=== PATIENT | male | born 1935 | race Caucasian/White ===

== ENCOUNTER 2019-02-28 09:32 | Inpatient (IN) | payer OTHER ==
--- NOTE | 2019-02-28 11:28 | RAD REPORT ---
EXAM DESCRIPTION: RAD - Chest Single View - 02/28/2019 10:59 am CLINICAL HISTORY: COPD, shortness of breath COMPARISON: None TECHNIQUE: AP portable chest image was obtained 1037 hours . FINDINGS: No focal lung parenchymal process seen. Mild prominence of the interstitial pattern favore d to be baseline the patient. No failure or volume overload. The Heart and vasculature are normal. No measurable pleural effusion and no pneumothorax. No acute bony abnormality seen. No acute aortic fin dings suspected. IMPRESSION: No acute cardiopulmonary process. Patient has mild interstitial lung disease favored to be chronic.
[2019-02-28 11:29] LABS: Absolute Lymphocytes (CBC) 0.7 K/uL (0.7-4.9); Absolute Monocytes 0.8 K/uL (0.1-1.3); Absolute Neutrophil 19.8 K/uL (1.8-8.0); Basophils % 0.1 % (0-1.3); Hematocrit 37.7 % (39.6-49.0); Lymphocytes % 3.1 % (15.3-44.8); MPV 9.1 fL (7.6-11.3); Monocytes % 3.5 % (3.3-12.3); RBC Red Blood Cell Count 4.13 M/uL (4.33-5.43)
[2019-02-28 11:33] LABS: Protime INR 1.26
[2019-02-28] MEDS ORDERED: LEVALBUTEROL 1.25 MG/3 ML NEB ONE (11:38)
[2019-02-28] MEDS ORDERED: NA CHLORIDE 0.9% 2,000 ML ONE (11:39)
[2019-02-28] MEDS ORDERED: CEFTRIAXONE/SWI 1gm 1 GM/10 ML SYR ONE (11:39)
[2019-02-28] MEDS ORDERED: FAMOTIDINE 20 MG/2 ML VIAL IV ONE (11:39)
[2019-02-28] MEDS ORDERED: predniSONE 20 MG TAB ONE (11:44)
--- NOTE | 2019-02-28 12:14 | EDPHYS ---
Physician Documentation [facility] Name: Juancho Avendaño Age: 83 yrs Sex: Male : 1935 Arrival Date: 02/28/2019 Time: 09:33 Bed 13 Private MD: ED Physician Akash Kemp HPI: 02/28 10:18 This 83 yrs old Male presents to ER via Wheelchair with complaints of kdr Shortness Of Breath, Trouble Walking, Decreased Appetite. 10:18 The patient has shortness of breath at rest, with light activity. Onset: The kdr symptoms/episode began/occurred gradually, 3 day(s) ago. Duration: The symptoms are continuous, and are steadily getting worse. The patient's shortness of breath is aggravated by exertion, light activity, is alleviated by rest, sitting up. Associated signs and symptoms: Pertinent positives: non-productive cough, nausea, vomiting, Pertinent negatives: chest pain, diaphoresis, dizziness, fever, loss of consciousness, numbness in extremities, visual changes. Severity of symptoms: At their worst the symptoms were moderate in the emergency department the symptoms are unchanged. It is unknown whether or not the patient has had similar symptoms in the past. The patient has not recently seen a physician. 10:18 [id number] states that the patient is normally very active but that for the last kdr three days he has been essentially bed ridden and weak. This morning, he was found on the floor. It is not known how long he had been there. He has no focal complaint other than minor tenderness to the right groin/pelvic rim. Historical: - Allergies: 09:50 No Known Allergies; hb - PMHx: 09:50 Hypertension; COPD; hb - Immunization history:: Adult Immunizations up to date. - Social history:: Smoking status: Patient uses tobacco products, smokes one pack cigarettes per day. - Ebola Screening: : No symptoms or risks identified at this time. ROS: 10:18 Constitutional: Negative for fever, chills, and weight loss, Eyes: Negative for injury, kdr pain, redness, and discharge, ENT: Negative for injury, pain, and discharge, Neck: Negative for injury, pain, and swelling, Cardiovascular: Negative for chest pain, palpitations, and edema, Abdomen/GI: Negative for abdominal pain, nausea, vomiting, diarrhea, and constipation, Back: Negative for injury and pain, : Negative for injury, bleeding, discharge, and swelling, MS/Extremity: Negative for injury and deformity, Skin: Negative for injury, rash, and discoloration, Psych: Negative for depression, anxiety, suicide ideation, homicidal ideation, and hallucinations, Allergy/Immunology: Negative for hives, rash, and allergies, Endocrine: Negative for neck swelling, polydipsia, polyuria, polyphagia, and marked weight changes, Hematologic/Lymphatic: Negative for swollen nodes, abnormal bleeding, and unusual bruising. 10:18 Respiratory: Positive for cough, dyspnea on exertion, shortness of breath, at rest. Negative for sputum production, acute changes. Exam: 10:28 Constitutional: This is a well developed, well nourished patient who is awake, alert, kdr and in no acute distress. Head/Face: Normocephalic, atraumatic. Eyes: Pupils equal round and reactive to light, extra-ocular motions intact. Lids and lashes normal. Conjunctiva and sclera are non-icteric and not injected. Cornea within normal limits. Periorbital areas with no swelling, redness, or edema. Neck: Trachea midline, no thyromegaly or masses palpated, and no cervical lymphadenopathy. Supple, full range of motion without nuchal rigidity, or vertebral point tenderness. No Meningismus. Chest/axilla: Normal chest wall appearance and motion. Nontender with no deformity. No lesions are appreciated. Cardiovascular: Regular rate and rhythm with a normal S1 and S2. No gallops, murmurs, or rubs. Normal PMI, no JVD. No pulse deficits. Abdomen/GI: Soft, non-tender, with normal bowel sounds. No distension or tympany. No guarding or rebound. No evidence of tenderness throughout. Back: No spinal tenderness. No costovertebral tenderness. Full range of motion. Skin: Warm, dry with normal turgor. Normal color with no rashes, no lesions, and no evidence of cellulitis. MS/ Extremity: Pulses equal, no cyanosis. Neurovascular intact. Full, normal range of motion. Neuro: Awake and alert, GCS 15, oriented to person, place, time, and situation. Cranial nerves II-XII grossly intact. Motor strength 5/5 in all extremities. Sensory grossly intact. Cerebellar exam normal. Normal gait. Psych: Awake, alert, with orientation to person, place and time. Behavior, mood, and affect are within normal limits. 10:28 Respiratory: mild respiratory distress is noted, Respirations: labored breathing, that is mild, Breath sounds: wheezing: inspiratory expiratory that is mild, is scattered, is heard diffusely. 12:06 ECG was reviewed by the Attending Physician. kdr Vital Signs: 09:49 BP 153 / 101; Pulse 92; Resp 28; Temp 98.4; Pulse Ox 83% on R/A; Weight 72.57 kg; bp 11:00 BP 115 / 78; Pulse 88; Resp 29; Pulse Ox 100% ; bp 12:32 BP 124 / 83; Pulse 96; Resp 23; Pulse Ox 100% ; bp 13:40 BP 100 / 65; Pulse 100; Resp 19; Pulse Ox 97% ; bp 14:36 BP 106 / 74; Pulse 91; Resp 23; Pulse Ox 96% ; bp MDM: 12:13 Patient medically screened. kdr 12:16 Data reviewed: vital signs, nurses notes, lab test result(s), EKG, radiologic studies. [facility] 02/28 10:17 Order name: Basic Metabolic Panel [facility] 02/28 10:17 Order name: Blood Culture Adult (2) kdr 02/28 10:17 Order name: CBC with Diff; Complete Time: 12:29 [facility] 02/28 10:17 Order name: Ckmb; Complete Time: 12:29 [facility] 02/28 10:17 Order name: CPK; Complete Time: 12:29 [facility] 02/28 10:17 Order name: Lactate; Complete Time: 12:04 [facility] 02/28 10:17 Order name: LFT's; Complete Time: 12:29 [facility] 02/28 10:17 Order name: Lipase; Complete Time: 12:29 [facility] 02/28 10:17 Order name: Procalcitonin; Complete Time: 12:29 [facility] 02/28 10:17 Order name: Protime (+inr); Complete Time: 12:29 [facility] 02/28 10:17 Order name: Ptt, Activated; Complete Time: 12:29 [facility] 02/28 10:17 Order name: Troponin (emerg Dept Use Only); Complete Time: 12:29 [facility] 02/28 10:17 Order name: Urine Microscopic Only; Complete Time: 14:00 [facility] 02/28 10:18 Order name: Basic Metabolic Panel; Complete Time: 12:29 EDMS 02/28 10:18 Order name: Blood Culture EDMS 02/28 12:19 Order name: Manual Differential; Complete Time: 12:29 EDMS 02/28 12:22 Order name: Basic Metabolic Panel EDMS 02/28 12:22 Order name: Basic Metabolic Panel EDMS 02/28 12:22 Order name: CBC with Automated Diff EDMS 02/28 12:22 Order name: CBC with Automated Diff EDMS 02/28 12:22 Order name: NT PRO-BNP EDMS 02/28 12:22 Order name: NT PRO-BNP EDMS 02/28 12:22 Order name: Troponin I EDMS 02/28 12:22 Order name: Troponin I EDMS 02/28 12:22 Order name: Troponin I EDMS 02/28 13:15 Order name: ABG Arterial Blood Gas; Complete Time: 14:00 EDMS 02/28 13:25 Order name: Blood Culture EDMS 02/28 13:32 Order name: Urine Dipstick--Ancillary (enter results) eb 02/28 13:35 Order name: Urine Dipstick-Ancillary; Complete Time: 14:00 EDMS 02/28 14:00 Order name: Flu kdr 02/28 10:17 Order name: Chest Single View XRAY; Complete Time: 11:37 kdr 02/28 10:17 Order name: Accucheck; Complete Time: 11:21 kdr 02/28 10:17 Order name: Cardiac monitoring; Complete Time: 11:21 kdr 02/28 10:17 Order name: EKG - Nurse/Tech; Complete Time: 11:42 kdr 02/28 10:17 Order name: IV Saline Lock - Large Bore; Complete Time: 11:20 kdr 02/28 10:17 Order name: Labs collected and sent; Complete Time: 11:20 kdr 02/28 10:17 Order name: O2 Per Protocol; Complete Time: 11:20 kdr 02/28 10:17 Order name: O2 Sat Monitoring; Complete Time: 11:21 kdr 02/28 10:17 Order name: Urine Dipstick-Ancillary (obtain specimen); Complete Time: 13:39 kdr 02/28 12:22 Order name: Regular EDMS 02/28 12:43 Order name: CT Head Brain wo Cont kdr 02/28 12:43 Order name: Pelvis XRAY kdr 02/28 12:43 Order name: Hip Right 2 View XRAY kdr 02/28 13:18 Order name: CT; Complete Time: 14:00 EDMS 02/28 14:32 Order name: Type and Screen EDMS 02/28 14:59 Order name: Lactate Sepsis 2 HR Follow-up EDMS EC:06 Rate is 88 beats/min. Rhythm is regular. QRS Star is Normal. VA interval is normal. QRS kdr interval is normal. Q waves are Present in leads II, III, aVF. Clinical impression: NSR w/ Non-specific ST/T Changes. Administered Medications: 10:30 Drug: Xopenex (3) 1.25 mg Route: Inhalation; bp 10:30 Drug: predniSONE 40 mg Route: PO; bp 14:54 Follow up: Response: No adverse reaction bp 11:30 Drug: NS 0.9% (30 ml/kg) 30 ml/kg Route: IV; Rate: bolus; Site: right antecubital; bp 14:54 Follow up: IV Status: Completed infusion; IV Intake: 2177ml bp 11:30 Drug: Pepcid 20 mg Route: IVP; Site: right antecubital; bp 14:53 Follow up: Response: No adverse reaction bp 11:30 Drug: Rocephin - (cefTRIAXone) 1 grams Route: IVPB; Infused Over: 30 mins; Site: right bp antecubital; 13:39 Follow up: IV Status: Completed infusion bp 13:00 Drug: vancoMYCIN 1 grams Route: IVPB; Infused Over: 2 hrs; Site: right antecubital; bp 14:53 Follow up: IV Status: Completed infusion; IV Intake: 250ml bp Disposition: 02/28/19 12:13 Hospitalization ordered by Joleen Conde for Inpatient Admission. Preliminary diagnosis is COPD Exacerbation, Pneumonia. - Bed requested for Telemetry/MedSurg (Inpatient). - Status is Inpatient Admission. bp - Condition is Serious. - Problem is new. - Symptoms have improved. UTI on Admission? No Signatures: Dispatcher [employer] EDWV Akash Kemp MD MD kdr Savannah Gastelum, RN RN Godfrey Luciano RN RN Johnna Jung Corrections: (The following items were deleted from the chart) 13:51 12:13 Hospitalization Ordered by Joleen Conde MD for Inpatient Admission. Preliminary eb diagnosis is COPD Exacerbation, Pneumonia. Bed requested for Telemetry/MedSurg (Inpatient). Status is Inpatient Admission. Condition is Serious. Problem is new. Symptoms have improved. UTI on Admission? No. kdr 15:08 13:51 02/28/2019 12:13 Hospitalization Ordered by Joleen Conde MD for Inpatient bp Admission. Preliminary diagnosis is COPD Exacerbation, Pneumonia. Bed requested for Telemetry/MedSurg (Inpatient). Status is Inpatient Admission. Condition is Serious. Problem is new. Symptoms have improved. UTI on Admission? No. eb
--- NOTE | 2019-02-28 12:14 | ER ---
Nurse's Notes [facility] Name: Juancho Avendaño Age: 83 yrs Sex: Male : 1935 Arrival Date: 02/28/2019 Time: 09:33 Bed 13 Private MD: Diagnosis: COPD Exacerbation, Pneumonia Presentation: 02/28 09:48 Presenting complaint: Patient states: Worsening SOB and generalized weakness x 3 days. hb Transition of care: patient was not received from another setting of care. Onset of symptoms was February 25, 2019. Risk Assessment: Do you want to hurt yourself or someone else? Patient reports no desire to harm self or others. Care prior to arrival: None. 09:48 Method Of Arrival: Wheelchair hb 09:48 Acuity: GRISEL 2 hb 10:00 Initial Sepsis Screen: Does the patient meet any 2 criteria? RR > 20 per min. No. bp Patient's initial sepsis screen is negative. Does the patient have a suspected source of infection? Yes: Productive cough/pneumonia. Triage Assessment: 10:00 General: Appears in no apparent distress. comfortable, Behavior is calm, cooperative, bp appropriate for age. Respiratory: Reports shortness of breath cough that is Onset: The symptoms/episode began/occurred at an unknown time. the patient has moderate shortness of breath. Historical: - Allergies: 09:50 No Known Allergies; hb - PMHx: 09:50 Hypertension; COPD; hb - Immunization history:: Adult Immunizations up to date. - Social history:: Smoking status: Patient uses tobacco products, smokes one pack cigarettes per day. - Ebola Screening: : No symptoms or risks identified at this time. Screenin:51 Abuse screen: Denies threats or abuse. Denies injuries from another. Nutritional bp screening: No deficits noted. Tuberculosis screening: No symptoms or risk factors identified. Fall Risk None identified. Assessment: 09:49 General: Appears distressed, comfortable, Behavior is cooperative, anxious. Pain: bp Complains of pain in GENERALIZED. Neuro: Level of Consciousness is awake, obeys commands, Oriented to person, place. Cardiovascular: Rhythm is sinus rhythm. Respiratory: Airway is patent Respiratory effort is even, labored, Respiratory pattern is symmetrical, Breath sounds with wheezes bilaterally. GI: No signs and/or symptoms were reported involving the gastrointestinal system. : Parent/caregiver report the patient having incontinence since 2 DAYS AGO. EENT: No deficits noted. Derm: No deficits noted. Musculoskeletal: GENERALIZED WEAKNESS. 11:00 Reassessment: IVF INFUSING, NO APPARENT DISTRESS. bp 12:33 Reassessment: ADMIT IN PROCESS, VS STABLE ON MONITOR. bp Vital Signs: 09:49 BP 153 / 101; Pulse 92; Resp 28; Temp 98.4; Pulse Ox 83% on R/A; Weight 72.57 kg; bp 11:00 BP 115 / 78; Pulse 88; Resp 29; Pulse Ox 100% ; bp 12:32 BP 124 / 83; Pulse 96; Resp 23; Pulse Ox 100% ; bp 13:40 BP 100 / 65; Pulse 100; Resp 19; Pulse Ox 97% ; bp 14:36 BP 106 / 74; Pulse 91; Resp 23; Pulse Ox 96% ; bp ED Course: 09:33 Patient arrived in ED. as 09:34 Akash Kemp MD is Attending Physician. kdr 09:49 Triage completed. hb 09:49 Godfrey Kennedy, RN is Primary Nurse. bp 09:49 Arm band placed on. hb 09:51 Patient has correct armband on for positive identification. Placed in gown. Bed in low bp position. Call light in reach. Side rails up X2. Adult w/ patient. 09:51 Oxygen administration via nasal cannula \T\ 2L/min. bp 09:52 surveillance monitor on. Pulse ox on. NIBP on. bp 10:59 Chest Single View XRAY In Process Unspecified. EDMS 11:10 Inserted saline lock: 20 gauge in right antecubital area, using aseptic technique. hb Blood collected. 11:52 EKG done, by sterilization tech. reviewed by Akash Kemp MD. sm3 12:11 Joleen Conde MD is Hospitalizing Provider. kdr 14:52 No provider procedures requiring assistance completed. Patient admitted, IV remains in bp place. Administered Medications: 10:30 Drug: Xopenex (3) 1.25 mg Route: Inhalation; bp 10:30 Drug: predniSONE 40 mg Route: PO; bp 14:54 Follow up: Response: No adverse reaction bp 11:30 Drug: NS 0.9% (30 ml/kg) 30 ml/kg Route: IV; Rate: bolus; Site: right antecubital; bp 14:54 Follow up: IV Status: Completed infusion; IV Intake: 2177ml bp 11:30 Drug: Pepcid 20 mg Route: IVP; Site: right antecubital; bp 14:53 Follow up: Response: No adverse reaction bp 11:30 Drug: Rocephin - (cefTRIAXone) 1 grams Route: IVPB; Infused Over: 30 mins; Site: right bp antecubital; 13:39 Follow up: IV Status: Completed infusion bp 13:00 Drug: vancoMYCIN 1 grams Route: IVPB; Infused Over: 2 hrs; Site: right antecubital; bp 14:53 Follow up: IV Status: Completed infusion; IV Intake: 250ml bp Intake: 14:53 IV: 250ml; Total: 250ml. bp 14:54 IV: 2177ml; Total: 2427ml. bp Outcome: 12:13 Decision to Hospitalize by Provider. kdr 14:51 Admitted to Med/surg accompanied by tech, family with patient, via stretcher, room 203, bp with chart, Report called to ANN [place] 14:51 Condition: stable 14:51 Instructed on the need for admit. 15:08 Patient left the ED. bp Signatures: Dispatcher [employer] EDMS Akash Kemp MD MD kdr Martinez, Amelia as Savannah Gastelum RN RN Godfrey Luciano RN RN bp Emily Bowling 3 Corrections: (The following items were deleted from the chart) 11:22 09:49 BP 153 / 101; Pulse 92bpm; Resp 28bpm; Pulse Ox 83% RA; Temp 98.4F; hb bp
[2019-02-28 12:16] LABS: Albumin 3.1 g/dL (3.4-5.0); Bilirubin Direct 0.2 mg/dL (0-0.2); Bilirubin Total 0.5 mg/dL (0.2-1.0); CKMB Creatine Kinase MB 13.8 ng/mL (0.3-3.6); Potassium 4.3 mmol/L (3.5-5.1); Protein, Total 7.3 g/dL (6.4-8.2); Troponin (Emerg Dept Use Only) 5.92 ng/mL (0.0-0.045)
[2019-02-28] MEDS ORDERED: IPRATROPIUM BROM 0.5MG/2.5ML NEB PRN (12:19)
[2019-02-28] MEDS ORDERED: ONDANSETRON 4 MG/2 ML VIAL IV PRN (12:19)
[2019-02-28] MEDS ORDERED: ALBUTEROL 2.5 MG/3 ML NEB SOL NEB PRN (12:19)
[2019-02-28] MEDS ORDERED: NA CHLORIDE 0.9% 500 ML IV ONE (12:22)
[2019-02-28 12:23] LABS: Blood Morphology Comment NOT SEEN (NOT SEEN); Platelet Estimate ADEQ
[2019-02-28] MEDS ORDERED: VANCOMYCIN/NS 1 gm 1 GM/250 ML BAG IV ONE ×2 (12:45→17:00)
[2019-02-28 13:15] LABS: Arterial Blood Carboxyhemoglob 1.1 % (0-1.5); Blood Gas Oxyhemoglobin 93.3 % (94-97); Blood O2 Saturation 95.3 % (92-98.5)
--- NOTE | 2019-02-28 13:17 | RAD REPORT ---
EXAM DESCRIPTION: CT - Head Brain Wo Cont - 02/28/2019 1:09 pm CLINICAL HISTORY: Head injury status post fall COMPARISON: None. TECHNIQUE: Computed axial tomography of the head was obtained. IV contrast was not requested. All CT scans are performed using dose optimization technique as appropriate and may include automated exposure control or mA/KV adjustment according to patient size. FINDINGS: 6 centimeter area of cystic encephalomalacia is present within the right cerebrum either s econdary to an old infarct or old bleed. No acute intracranial bleed is seen . Hydrocephalus is not present. No extra-axial fluid collection is noted. Fluid within the sinuses/ mastoids is not seen. IMPRESSION: No acute intracranial abnormality is seen. If patient's symptoms persist MRI of the bra in would be recommended.
[2019-02-28 13:35] LABS: Urine Blood 2+ (NEG); Urine Glucose NEGATIVE (NEG); Urine Protein 3+ (NEG); Urine Specific Gravity 1.015 (1.005-1.030); Urine pH 8.5 (5.0-7.0)
[2019-02-28 13:41] LABS: Urine Bacteria >50 /HPF (NONE SEEN); Urine Culture Reflex Order REFLEXED
--- NOTE | 2019-02-28 15:40 | RAD REPORT ---
EXAM DESCRIPTION: RAD - Hip Right 2 View - 02/28/2019 2:53 pm CLINICAL HISTORY: Fall, hip pain COMPARISON: None. FINDINGS: AP and cross-table lateral views obtained. Bipolar prosthesis is in place. No dislocation of the femoral or acetabular components. Osteopenic c hanges are seen in the proximal intertrochanteric region of the femur. No fracture or acute finding. No significant soft tissue finding identifiable. 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 No acute bone or joint finding. No suspicious implant finding.
--- NOTE | 2019-02-28 15:45 | RAD REPORT ---
EXAM DESCRIPTION: RAD - Pelvis - 02/28/2019 2:54 pm CLINICAL HISTORY: Fall, weakness, hip and pelvic pain COMPARISON: None. TECHNIQUE: AP imaging of the pelvis was obtained. FINDINGS: Lower lumbar degenerative changes are present only partially imaged. No fracture or acute finding of the bony pelvis. Right bipolar prosthesis in place with no dislocation. No acute finding o f either proximal femur or hip joint. No suspicious soft tissue finding. IMPRESSION: No fracture or acute finding noted.
[2019-02-28 16:15] LABS: Albumin 2.7 g/dL (3.4-5.0); Bilirubin Total 0.4 mg/dL (0.2-1.0); Potassium 3.6 mmol/L (3.5-5.1); Protein, Total 6.1 g/dL (6.4-8.2)
[2019-02-28] MEDS: ENOXAPARIN 30 MG/0.3 ML SQ SCH (16:19)
[2019-02-28] MEDS: ACETAMINOPHEN 500 MG TAB PO PRN (16:19)
[2019-02-28] MEDS ORDERED: METHYLPREDNISOLONE 40 MG INJ IV SCH (17:00)
--- NOTE | 2019-03-01 02:19 | HP ---
Date of Admission: 02/28/2019 History Of Present Illness: An 83-year-old male who started feeling tired for the past 2 days and he felt febrile and had chills and he gradually got worse and today, he went to the bathroom and he was trying to sit on the commode when he actually slipped. He caught himself. He did not have a trauma tic fall, but he sat on the floor and stayed on the floor for about 2-3 hours because he could not ge t himself up from there until his family found him and brought into the emergency room. The patient was found to be having sepsis and indicated up until now with workup is from urine tract infection. The patient himself right now is alert and oriented. He has no complaints and no urinary complaints. He has only complaint he was feeling fatigued and tired. Review of Systems: Cardiovascular: No complaints. Skeletomuscular: No complaint. No pains. Genitourinary: The patient wet himself 2-3 times yesterday. Gastrointestinal: No complaint. Cardiovascular: No complaint. Neurological: No complaint. Past Medical History: 1.COPD. 2.Chronic kidney disease with hypertension. 3.Coronary artery disease. 4.Hyperlipidemia. 5.Osteoarthritis, multiple joints. 6.Bilateral decreased hearing. 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 Social History: The patient still smokes till now. No alcohol or IV drug abuse history. Family History: Noncontributing. Medications: Include lisinopril 20 mg p.o. daily, furosemide 40 mg p.o. daily, Plavix 75 mg p.o. eduin ly, spironolactone 25 mg p.o. daily, simvastatin 20 mg p.o. daily, amlodipine 2.5 mg p.o. daily. Allergies: NO KNOWN DRUG ALLERGIES. Physical Examination: Vital Signs: Blood pressure 150/100, pulse 92, temperature 98.4. Heart: Regular rate and rhythm. Chest: Clear to auscultation. Abdomen: Soft, nontender, nondistended. Bowel sounds are normoactive. The patient had no tendernes s on both of CVA areas. Neurological examination: Alert, oriented, nonfocal. Grossly intact. Extremities: No edema. No cyanosis. Peripheral pulses are felt. Imaging: The patient's chest x-ray, no acute pathology. Head CT, no acute pathology. Hip and pelvi c x-ray reported to me by ER physician, no acute pathology. Laboratory Data: CBC: White cell count of 21.2, hemoglobin 12.7, hematocrit 37.7, platelets 154, ab solute neutrophils 19.8, which are high. PT, INR, and PTT noted. ABGs on room showed the pH of 7.43 , pCO2 27.8, PO2 78.4, saturation 95.3. Chemistry, pending, however, his lactic acid was 2.7, which is high. Urinalysis; urine blood 2+, esterase 1+, white BC more than 50. Assessment/plan: 1.Sepsis from urine tract infection. The patient is being admitted. We will put him on IV Rocephin and we will monitor his electrolytes and his CBC. We will continue his home medicines for his chron ic medical illnesses, and microbiology cultures are drawn. We will guide antibiotics after that pend ing culture results. 2.COPD. We will continue the patient on his breathing treatments. 3.The patient has also been put on vancomycin. We will ask pharmacy to guide dosing guided by his r enal function. Look orders for details. BRANDI/KATELYN Voice ID: [id number]
[2019-03-01 06:47] LABS: Potassium 3.9 mmol/L (3.5-5.1)
[2019-03-01 06:58] LABS: Absolute Lymphocytes (CBC) 0.6 K/uL (0.7-4.9); Absolute Monocytes 0.7 K/uL (0.1-1.3); Absolute Neutrophil 15.4 K/uL (1.8-8.0); Basophils % 0.2 % (0-1.3); Hematocrit 34.4 % (39.6-49.0); Lymphocytes % 3.4 % (15.3-44.8); MPV 10.2 fL (7.6-11.3); Monocytes % 4.2 % (3.3-12.3); RBC Red Blood Cell Count 3.78 M/uL (4.33-5.43)
[2019-03-01] MEDS: IPRATROPIUM BROM 0.5MG/2.5ML NEB PRN (08:00)
[2019-03-01] MEDS: ALBUTEROL 2.5 MG/3 ML NEB SOL NEB PRN (08:00)
[2019-03-01] MEDS: CEFTRIAXONE/SWI 1gm 1 GM/10 ML SYR IVP SCH (09:00)
--- NOTE | 2019-03-01 12:37 | CON ---
Reason For Consultation: Abnormal troponins. History Of Present Illness: Mr. Ramesh was found fallen on the floor, unable to stand up. He had co mplained of weakness a few days before and since being in the hospital, he has been found to have sep sis, urinary tract infection. He has gram-negative rods growing from the urine. He has gram-positiv e cocci growing in the blood. It is not clear to me if that is a skin contaminant or actually has a strep infection. Identifying organisms have not been done as of yet. He is on antibiotics and seems to be getting better. He is not on vancomycin and ceftriaxone. He has never had myocardial infarct ion. He has had a stroke before. As an outpatient, he takes spironolactone, simvastatin, lisinopril , amlodipine, Lasix and Plavix. Physical Examination: General: He appears to be much older than his stated age, very poor oral hygiene, amount of missing teeth, looks like very severe gum disease, very hard of hearing. He is more than slightly confused. Lungs: Clear. Heart: Regular rate and rhythm. No significant murmur. Abdomen: Soft. Extremities: No edema. Distal pulses diminished. The patient is a regular tobacco user. Laboratory Data: His chest x-ray shows chronic interstitial lung disease. His electrocardiogram jorge ws sinus rhythm without infarction, injury, or ischemia. Troponins are very elevated. Also, white c ount is very elevated. Troponins are in the 7.58-8.69 range. They were 5.92 when he first arrived i the [facility]. Also, creatine kinase and CK-MB were both high. The percent of total CK that was CK -MB 2 was low consistent with musculoskeletal disease. Procalcitonin levels are more than 20. Impression: The patient is probably not having an acute coronary syndrome. I think he has severe se pticemia. He may have 2 different sources. It is possible he has an infected valve, but he definite ly has urinary tract infection, probably nephritis with gram-negative septicemia. I do not think doi ng a cardiac cath is the right thing to do now. Giving him antibiotics, doing an echo is probably wo rthwhile. I will order an echocardiogram for Sunday. JOANNA/KATELYN Voice ID: [id number] Report ID: [id number]
--- NOTE | 2019-03-01 13:13 | PN ---
Subjective: The patient is doing okay. Has no new complaints. Objective: Vital Signs: Blood pressure 145/70, pulse 80, temperature 97.3. Heart: Regular rate and rhythm. Chest: Clear to auscultation. Abdomen: Soft, benign. Bowel sounds are active. Extremities: No edema. No cyanosis. Peripheral pulses are felt. Neurological: Alert, oriented. He knew my name and that I am his physician, and that he is in the h ospital. Nonfocal. Grossly intact. Laboratory Data: BUN 61, creatinine 2.25. This has slightly improved. Blood sugar fingersticks 174 to 138. Troponin 8.69. CPK dropped from 8012-2799. CBC, white cell count 16.7 dropped from 21.2, hemoglobin 11.4, hematocrit 34.4, platelets 157. Influenza screening negative. Urinalysis more than 100,000 colony-forming units per mL. Has mixed valencia and 4+ gram-negative rods. Blood cultures, gr am-positive cocci in pairs and chains. Sensitivity is pending. Assessment/plan: 1.Sepsis from urinary tract infection. The patient responding to vancomycin and Rocephin. Pending culture results completed and sensitivity. 2.Rhabdomyolysis secondary to prolonged recumbency on the floor for few hours before he came to the hospital. We will put the patient on gentle hydration to improve also kidney functions. I think the patient has acute renal failure from also volume depletion. 3.Increased troponin. The patient with history of coronary artery disease. Cardiology is being con sulted. The patient is hemodynamically stable. Pending Cardiology recommendation for elevated blood sugar fingersticks. We will go ahead, I have been checking hemoglobin A1c, and we will act accordingly. Rest of medical problems, stable. Look orders for details. MFS/MODL Voice ID: [id number] Report ID: [id number]
[2019-03-01] MEDS: NA CHLORIDE 0.9% 1,000 ML IV SCH (13:44)
[2019-03-01] MEDS: ENOXAPARIN 30 MG/0.3 ML SQ SCH (16:55)
[2019-03-01] MEDS: ATORVASTATIN 10 MG TAB PO SCH (22:00)
[2019-03-02] MEDS ORDERED: VANCOMYCIN 1.5 GM in NA CHLORIDE 0.9% 500 ML IVPB SCH (05:00)
[2019-03-02 05:11] LABS: Absolute Lymphocytes (CBC) 0.7 K/uL (0.7-4.9); Absolute Monocytes 0.8 K/uL (0.1-1.3); Absolute Neutrophil 8.5 K/uL (1.8-8.0); Basophils % 0.1 % (0-1.3); Eosinophils % 0.2 % (0-4.4); Hematocrit 31.2 % (39.6-49.0); Lymphocytes % 6.5 % (15.3-44.8); MPV 9.7 fL (7.6-11.3); Monocytes % 8.3 % (3.3-12.3); RBC Red Blood Cell Count 3.42 M/uL (4.33-5.43)
[2019-03-02 05:41] LABS: Potassium 3.8 mmol/L (3.5-5.1)
[2019-03-02] MEDS: IPRATROPIUM BROM 0.5MG/2.5ML NEB PRN ×2 (06:15→19:55)
[2019-03-02] MEDS: ALBUTEROL 2.5 MG/3 ML NEB SOL NEB PRN ×2 (06:15→19:55)
[2019-03-02] MEDS: ACETAMINOPHEN 500 MG TAB PO PRN (06:32)
[2019-03-02] MEDS: CLOPIDOGREL 75 MG TABLET PO SCH (08:12)
[2019-03-02] MEDS: AMLODIPINE 2.5 MG TAB PO SCH (08:12)
[2019-03-02] MEDS: LISINOPRIL 20 MG TAB PO SCH (08:13)
[2019-03-02] MEDS: CEFTRIAXONE/SWI 1gm 1 GM/10 ML SYR IVP SCH (08:13)
[2019-03-02] MEDS: NA CHLORIDE 0.9% 1,000 ML IV SCH ×2 (09:00→13:41)
[2019-03-02] MEDS: ENOXAPARIN 30 MG/0.3 ML SQ SCH (17:34)
[2019-03-02] MEDS: ATORVASTATIN 10 MG TAB PO SCH (20:25)
[2019-03-03] MEDS: ALBUTEROL 2.5 MG/3 ML NEB SOL NEB PRN (01:31)
[2019-03-03] MEDS: IPRATROPIUM BROM 0.5MG/2.5ML NEB PRN (01:31)
[2019-03-03] MEDS: NA CHLORIDE 0.9% 1,000 ML IV SCH (04:21)
[2019-03-03] MEDS ORDERED: NA CHLORIDE 0.9% 500 ML ONE (04:45)
[2019-03-03] MEDS ORDERED: VANCOMYCIN 1 GM/VIAL ONE (04:45)
[2019-03-03] MEDS ORDERED: VANCOMYCIN 500 MG/VIAL ONE (04:45)
[2019-03-03] MEDS: VANCOMYCIN 1.5 GM in NA CHLORIDE 0.9% 500 ML IVPB SCH ×2 (04:49→04:55)
[2019-03-03 06:01] LABS: Absolute Lymphocytes (CBC) 0.7 K/uL (0.7-4.9); Absolute Neutrophil 6.2 K/uL (1.8-8.0); Basophils % 0.2 % (0-1.3); Eosinophils % 0.3 % (0-4.4); Hematocrit 33.3 % (39.6-49.0); Lymphocytes % 9.1 % (15.3-44.8); MPV 9.5 fL (7.6-11.3); Monocytes % 12.5 % (3.3-12.3); RBC Red Blood Cell Count 3.66 M/uL (4.33-5.43)
[2019-03-03 06:35] LABS: Potassium 3.7 mmol/L (3.5-5.1)
[2019-03-03] MEDS: CEFTRIAXONE/SWI 1gm 1 GM/10 ML SYR IVP SCH (08:42)
[2019-03-03] MEDS: LISINOPRIL 20 MG TAB PO SCH (08:42)
[2019-03-03] MEDS: CLOPIDOGREL 75 MG TABLET PO SCH (08:42)
[2019-03-03] MEDS: AMLODIPINE 2.5 MG TAB PO SCH (08:42)
[2019-03-03] MEDS: CIPROFLOXACIN HCL 250 MG TAB PO SCH ×2 (09:14→20:57)
--- NOTE | 2019-03-03 11:58 | ECHO ---
HEIGHT: 5 ft 9 in WEIGHT: 185 lb 0 oz DATE OF STUDY: 03/03/[address]: 2-DIMENSIONAL: YES M.MODE: YES DOPPLER: YES COLOR FLOW: YES TDS: NO PORTABLE: NO DEFINITY: NO BUBBLE STUDY: NO DIAGNOSIS: ABNORMAL TROPONIN CARDIAC HISTORY: CATHERIZATION: NO SURGERY: NO PROSTHETIC VALVE: NO PACEMAKER: NO MEASUREMENTS (cm) DIASTOLIC (NORMALS) SYSTOLIC (NORMALS) IVSd 1.2 (0.6-1.2) LA Diam 3.4 (1.9-4.0) LVEF 55-57% LVIDd 5.3 (3.5-5.7) LVIDs 4.3 (2.0-3.5) %FS 19% LVPWd 1.2 (0.6-1.2) Ao Diam 2.6 (2.0-3.7) 2 DIMENSIONAL ASSESSMENT: RIGHT ATRIUM: NORMAL LEFT ATRIUM: NORMAL RIGHT VENTRICLE: NORMAL LEFT VENTRICLE: NORMAL TRICUSPID VALVE: NORMAL MITRAL VALVE: NORMAL PULMONIC VALVE: NORMAL AORTIC VALVE: SCLEROSIS, THREE LEAFLETS PERICARDIAL EFFUSION: NONE AORTIC ROOT: NORMAL LEFT VENTRICULAR WALL MOTION: MILD APICAL HYPOKINESIS. DOPPLER/COLOR FLOW: MILD MITRAL REGURGITATION AND MILD AORTIC REGURGITATION. COMMENTS: NORMAL LEFT VENTRICULAR EJECTION FRACTION WITH APICAL HYPOKINESIS. AORTIC SCLEROSIS WITH NO AORTIC STENOSIS. MILD AORTIC REGURGITATION AND MITRAL REGURGITATION. TECHNOLOGIST: ASIM MACHADO
[2019-03-03] MEDS: ACETAMINOPHEN 500 MG TAB PO PRN (16:09)
[2019-03-03] MEDS: ENOXAPARIN 30 MG/0.3 ML SQ SCH (16:10)
--- NOTE | 2019-03-03 20:45 | PN ---
Subjective: The patient is doing well. Still having some difficulty in ambulating on his own. Objective: Vital Signs: Blood pressure 135/65, pulse 60, temperature 98. Heart: Regular rate and rhythm. Chest: Clear to auscultation. Abdomen: Soft, benign. Neurologic: Alert, oriented x4. Grossly intact. Extremities: No edema. No cyanosis. Peripheral pulses are felt. Laboratory Data: The patient's cardiac echo showed left ventricular ejection fraction at 55%-57% and the patient's chemistry showed improved renal function. CBC noted. Blood grew Providencia rettgeri bacteria, sensitivities noted. Assessment And Plan: 1.Acute renal failure, improving. Sepsis controlled. We are going to change the patient guarded by his Pseudomonas aeruginosa in urine and Providencia in the blood to ciprofloxacin 250 mg b.i.d. acco unting also for the patient's renal failure which is improving. 2.We will ask for the patient to be in a correction facility for PT and OT for ambulation. 3.We will continue the rest of his home medications. 4.Appreciate Cardiology input. Look orders for details. MFS/MODL Voice ID: [id number] Report ID: [id number]
[2019-03-03] MEDS: ATORVASTATIN 10 MG TAB PO SCH (20:57)
[2019-03-04] MEDS: NA CHLORIDE 0.9% 1,000 ML IV SCH (01:16)
[2019-03-04] MEDS: CLOPIDOGREL 75 MG TABLET PO SCH (09:14)
[2019-03-04] MEDS: AMLODIPINE 2.5 MG TAB PO SCH (09:14)
[2019-03-04] MEDS: CIPROFLOXACIN HCL 250 MG TAB PO SCH ×2 (09:14→21:29)
[2019-03-04] MEDS: LISINOPRIL 20 MG TAB PO SCH (09:14)
--- NOTE | 2019-03-04 11:25 | EKG ---
Test Date: 2019-02-28 Test Time: 11:47:42 Industrial Machine System Technician: NICHOLAS MEASUREMENT RESULTS: Intervals: Rate: 88 [place]: 180 QRSD: 100 QT: 346 QTc: 418 [place]: P: 37 [place]: 180 QRS: 69 T: 53 INTERPRETIVE STATEMENTS: Normal sinus rhythm Nonspecific T wave abnormality Abnormal ECG No previous ECG available for comparison Electronically Signed On 02-28-19 12:49:21 CDT by Placido Meyer
--- NOTE | 2019-03-04 11:26 | EKG ---
Test Date: 2019-02-28 Test Time: 17:16:12 Certified Social Workers In Health Care: [place] MEASUREMENT RESULTS: Intervals: Rate: 71 [place]: 186 QRSD: 114 QT: 424 QTc: 460 [place]: P: 51 [place]: 186 QRS: 63 T: 59 INTERPRETIVE STATEMENTS: Normal sinus rhythm Cannot rule out Anterior infarct, age undetermined Abnormal ECG Compared to ECG 02/28/2019 11:47:42 Myocardial infarct finding now present T-wave abnormality no longer present Electronically Signed On 02-28-19 18:20:56 CDT by Placido Meyer
--- NOTE | 2019-03-04 11:26 | EKG ---
Test Date: 2019-02-28 Test Time: 17:29:16 Degreaser: ALFREDO MEASUREMENT RESULTS: Intervals: Rate: 70 [place]: 180 QRSD: 116 QT: 436 QTc: 470 [place]: P: 53 [place]: 180 QRS: 66 T: 25 INTERPRETIVE STATEMENTS: Normal sinus rhythm Cannot rule out Anterior infarct, age undetermined Abnormal ECG Compared to ECG 02/28/2019 11:47:42 Myocardial infarct finding now present T-wave abnormality no longer present Electronically Signed On 02-28-19 18:20:47 CDT by Placido Meyer
[2019-03-04] MEDS: ENOXAPARIN 30 MG/0.3 ML SQ SCH (16:54)
[2019-03-04] MEDS: ALBUTEROL 2.5 MG/3 ML NEB SOL NEB PRN (17:17)
[2019-03-04] MEDS: IPRATROPIUM BROM 0.5MG/2.5ML NEB PRN (17:17)
[2019-03-04] MEDS: ATORVASTATIN 10 MG TAB PO SCH (21:29)
[2019-03-05] MEDS: AMLODIPINE 2.5 MG TAB PO SCH (08:55)
[2019-03-05] MEDS: CIPROFLOXACIN HCL 250 MG TAB PO SCH (08:55)
[2019-03-05] MEDS: LISINOPRIL 20 MG TAB PO SCH (08:55)
[2019-03-05] MEDS: CLOPIDOGREL 75 MG TABLET PO SCH (08:56)
== END 2019-03-05 15:45 | DRG 871 ==
LOC: ER 09:32 → ERHOLD 12:17 → 2ND 14:53
PROVIDERS: ADMIT Internal Medicine; ATTEND Internal Medicine
DX: A41.59 Other Gram-negative sepsis (principal); J18.9 Pneumonia, unspecified organism; J44.0 Chronic obstructive pulmonary disease with (acute) lower respiratory infection; I69.354 Hemiplegia and hemiparesis following cerebral infarction affecting left non-dominant side; N39.0 Urinary tract infection, site not specified; M62.82 Rhabdomyolysis; N17.9 Acute kidney failure, unspecified; J44.1 Chronic obstructive pulmonary disease with (acute) exacerbation; R65.20 Severe sepsis without septic shock; F17.210 Nicotine dependence, cigarettes, uncomplicated; I25.10 Atherosclerotic heart disease of native coronary artery without angina pectoris; I10 Essential (primary) hypertension; E78.5 Hyperlipidemia, unspecified; M19.90 Unspecified osteoarthritis, unspecified site; H91.93 Unspecified hearing loss, bilateral; R79.89 Other specified abnormal findings of blood chemistry; B96.5 Pseudomonas (aeruginosa) (mallei) (pseudomallei) as the cause of diseases classified elsewhere
CPT/HCPCS: 36415; 70450; 71045; 72170; 80048; 80053; 80076; 80202; 81003; 81015; 82150; 82550; 82553; 82805; 82962; 83036; 83605; 83690; 83880; 84145; 84484; 85025; 85610; 85730; 86140; 86850; 86900; 86901; 87040; 87070; 87077; 87086; 87088; 87186; 87205; 87804; 93005; 93306; 94640; 94760; 96365; 96366; 96367; 96368; 96375; 97110; 97116; 97162; 97530; 99285; J0696; J1650; J3370; J7030; J7512

== ENCOUNTER 2020-04-13 10:33 | Inpatient (IN) | payer OTHER ==
--- OUTSIDE RECORDS SUMMARY | 2020-04-13 11:34 | XMS REPORT ---
:1935 Author Organization [facility] Address [facility]ly 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 Social History Smoking Status Start Date Stop Date Source Heavy Tobacco Smoker [facility] Medications Ordered Filled Start Stop Current Ordering Indication Dosage Frequency Signature Comments Components Source Medication Medication Date Date Medication? Clinician (SIG) Name Name amlodipine amlodipine No 1 Q1D amlodipine [facility] 2.5 mg 2.5 mg 2.5 mg Family tablet Take tablet Take tablet Practic 1 tablet 1 tablet Take 1 e every day every day tablet by oral by oral every day route for route for by oral 90 days. 90 days. route for 90 days. clopidogrel clopidogrel No 1 Q1D clopidogre [facility] 75 mg 75 mg l 75 mg Family tablet Take tablet Take tablet Practic 1 tablet 1 tablet Take 1 e every day every day tablet by oral by oral every day route for route for by oral 90 days. 90 days. route for 90 days. furosemide furosemide No 1 Q1D furosemide [facility] 40 mg 40 mg 40 mg Family tablet Take tablet Take tablet Practic 1 tablet 1 tablet Take 1 e every day every day tablet by oral by oral every day route for route for by oral 30 days. 30 days. route for 30 days. lisinopril lisinopril No 1 Q1D lisinopril [facility] 20 mg 20 mg 20 mg Family tablet Take tablet Take tablet Practic 1 tablet 1 tablet Take 1 e every day every day tablet by oral by oral every day route. route. by oral route. ProAir HFA ProAir HFA No 2puff(s Q4H ProAir HFA [facility] ) 90 Family mcg/actuati mcg/actuati mcg/actuat Pract[facility] on aerosol on aerosol ion e inhaler inhaler aerosol Inhale 2 Inhale 2 inhaler puffs every puffs every Inhale 2 4 hours by 4 hours by puffs inhalation inhalation every 4 route as route as hours by needed. needed. inhalation route as needed. simvastatin [facility] mg n 20 mg Family tablet Take tablet Take tablet Practic 1 tablet 1 tablet Take 1 e every day every day tablet by oral by oral every day route for route for by oral 90 days. 90 days. route for 90 days. spironolact spironolact No 1 Q1D spironolac [facility] one 25 mg one 25 mg tone 25 mg Family tablet Take tablet Take tablet Practic 1 tablet 1 tablet Take 1 e every day every day tablet by oral by oral every day route for route for by oral 90 days. 90 days. route for 90 days. Symbicort Symbicort No 2puff(s BID Symbicort [facility] 160 mcg-4.5 160 mcg-4.5 ) 160 F amily mcg/actuati mcg/actuati mcg-4.5 Practic on HFA on HFA mcg/actuat e aerosol aerosol ion HFA inhaler inhaler aerosol Inhale 2 Inhale 2 inhaler puffs twice puffs twice Inhale 2 a day by a day by puffs inhalation inhalation twice a route as route as day by directed. directed. inhalation route as directed. tamsulosin tamsulosin No 1capsul Q1D tamsulosin [facility] 0.4 mg 0.4 mg e(s) 0.4 mg Family capsule capsule capsule Practi c Take 1 Take 1 Take 1 e capsule capsule capsule every day every day every day by oral by oral by oral route for route for route for 30 days. 30 days. 30 days. Immunizations Ordered Immunization Filled Immunization Date Status Commen ts Source Name Name pneumococcal pneumococcal 2019-09-02 Completed [facility] michelle polysaccharide PPV23 polysaccharide PPV23 00:00:00 Practice influenza, influenza, 2019-09-02 Completed [facility] recombinant, recombinant, 00:00:00 Practice quadrIvalent,injectab quadrIvalent,injectab le, preservative free le, preservative free Vital Signs Vital Name Observation Time Observation Value Comments Source BP Diastolic 2020-01-27 00:00:00 80 mm[Hg] [facility] Height 2020-01-27 00:00:00 70 [in_i] [facility] BMI (Body Mass 2020-01-27 00:00:00 26.5 kg/m2 [facility] Index) Practice BP Systolic 2020-01-27 00:00:00 130 mm[Hg] [facility] Body Weight 2020-01-27 00:00:00 185 [lb_av] [facility] Procedures This patient has no known procedures. Plan of Care Planned Activity Planned Date Details Comments Source Instructions [facility] Encounters Start End Encounter Admission Attending Care Care Encounter Source Date/Time Date/Time Type Type Clinicians Facility Department ID 2020-01-27 2020-01-27 Anna [facility] [place] - [id number] [facility] 00:00:00 00:00:00 [facility] luis manuel lopez AGILE DEVELOPER: Medical - Practi tabatha [email or web address], [address] [address], [place] [address] , Ph. 2020-01-26 2020-01-26 Deniseat [facility] [place] - [id number] [facility] 00:00:00 00:00:00 Rickey [facility] PHARMD: Medical - Pracamandeep mays [email or web address] [facility], [address] [address], [place] [address] , Ph. Results This patient has no known results.
--- OUTSIDE RECORDS SUMMARY | 2020-04-13 11:34 | XMS REPORT | Encounter Summary ---
:1935 Author Care Team Providers Name Role Phone Dr. Joleen Conde Primary Care Provider [phone] Reason for Visit Pharmacy Consult Instructions 1. Taking multiple medications f or chronic disease Discussion Note 1. History of sepsis Patient with hospital admission 02/2019 d ue to sepsis and urinary infection per daughter. Last available eGFR 45 ml/min/m2 on 03/04/2019. Had US - Renal and Bladder - 01/20/2020 and is awaiting to discuss results with PCP. Patient to continue f ollowing up with PCP and/or specialist(s). 2. COPD Per daughter, patient has not had any [place] PD exacerbations or hospitalizations over past year. Patient not available to complete CAT assessment over the phone. Daughter states that patient may have an inh aler, but hasn't filled in a long time. Complains of burning in throat while using it. Advised daughter to discuss with TIE CARRIER tomorrow and have all inhalers available to review. 3. Current smoker Per daughter, patient smokes at least 1 pack per day x 75 years. Will discuss with TIE CARRIER during AWV tomorrow. Reminded of tomorrow's AWV appt. Jose ron will be there with patient and is looking forward to visit. Patient educational handouts: No information available. Plan of Care Reminders Provider Appointments Awv 90 01/27/2020 Anna 9:30AM KRISTIE Gutierrez Lab None recorded. Referral None recorded. Procedures None recorded. Surgeries None recorded. Imaging None recorded. Medications Name Start Date amlodipine 2.5 mg tablet Take 1 tablet every day by oral route for 90 days. clopidogrel 75 mg tablet Take 1 tablet every day by oral route for 90 days. furosemide 40 mg tablet Take 1 tablet every day by oral route for 30 days. lisinopril 20 mg tablet Take 1 tablet every day by oral route. simvastatin 20 mg tablet Take 1 tablet every day by oral route for 90 days. spironolactone 25 mg tablet Take 1 tablet every day by oral route for 90 days. tamsulosin 0.4 mg capsule Take 1 capsule every day by oral route for 30 days. Medications Administered None recorded. Vitals None recorded. Results Lab Results None recorded. Allergies Code Code System Name Reaction Severity Status Onset NKDA Problems Name Status Onset Date Source Hyperparathyroidism Active 01/26/2020 Congestive Heart Failure Active 01/26/2020 Chronic Obstructive Lung Disease Active 01/26/2020 Chronic Kidney Disease Stage 3 Active 01/26/2020 Procedures None recorded. Vaccine List Vaccine Type influenza, recombinant, quadrIvalent,inj ectable, preservative free .5 mL pneumococcal polysaccharide PPV23 .5 mL Social History Tobacco Smoking Status Heavy Tobacco Smoker (1 PPD) Past Encounters 01/26/2020 Taking Multiple Medications for Chronic Disease Justin Lang, PHARMD: [address], [place] [address], Ph. History of Present Illness None recorded. Review of Systems None recorded. Physical Exam None recorded.
--- OUTSIDE RECORDS SUMMARY | 2020-04-13 11:34 | XMS REPORT | Encounter Summary ---
:1935 Author Care Team Providers Name Role Phone Dr. Joleen Conde Primary Care Provider [phone] Christelle Brambila MD Safety Relief Valve Technician [phone] Reason for Visit AWV Annual Wellness Visit Male; Tobacco Cessation Counseling Instructions 1. Advance directive discussed w ith patient advance care planning: car e instructions 2. Depression screening 3. Nicotine dependence stopping smoking: care ins tructions advised to quit smoking deciding about using medic julieta to quit smoking 4. Congestive heart failure furosemide 40 mg tablet 5. Essential hypertension amlodipine 2.5 mg tablet lisinopril 20 mg tablet spironolactone 25 mg table t 6. Benign prostatic hyperplasia tamsulosin 0.4 mg capsule 7. Body mass index 25-29 - overw eight learning about healthy jeffrey ght 8. Mild chronic obstructive pulm onary disease ProAir HFA 90 mcg/actuatio n aerosol inhaler Compact Space Chamber Symbicort 160 mcg-4.5 mcg/ actuation HFA aerosol inhaler 9. Hypercholesterolemia simvastatin 20 mg tablet 10. History of cerebrovascular a ccident clopidogrel 75 mg tablet Discussion Note: None recorded. Plan of Care Patient Instructions It was good to see you in the offic e today for your Medicare Annual Wellness Visit. You have been provided some information on healthy nutrition, including a diet rich in fruits and vegetables, minimizing simple carbohydrates, salt, and saturated fats. I want to encourage regular cardi ovascular exercise such as walking at le ast 30 minutes daily, 5 times per week. Please remember to schedule any preventi ve health measures that we talked about today. You have also been provided education on fall prevention and community- based lifestyle interventions to help reduce health risks and promote healthy living in your Annual Wellness folder. Screening Recommendations 1. Vaccines Pneumonia: uptodate Influenz a: Next Fall 2. Colorectal Cancer Screening: recommended Recommended today 3. Annual Prostate Screening 4. Annual Depression Screening 5. Annual Alcohol Screening 6. Annual Fall Risk Screening 7. Annual Health Risk Assessment Quitting Tobacco Goals Quitting smokin g is important for your health, but it is hard to do. We agreed to the following goals towards reducing your tobacco habits: Today we talked about how you are not thinking about quitting smoking. Since you want to smoke less, but are not ready to quit yet, we agreed that by your next appointment, you would not ready at this time. Since your ready to quit smoking , we agreed that you would smoke your la st cigarette on . Prison Goals: *Permanently quit smoking *Improve lung function *Reduce my risk of getting emphysema, cancer and heart disease What can increase my chances of success for quitting smoking? *Regular exercise *Chew gum or hard can dy *Identify triggers that lead to smoking, and establish new strategies for coping with these situations *Keep yourself busy *Contact additional resources for lizama pport, such as [employer] *Don't give up, even if you have a setback How can my healthcare team support me i n quitting smoking? *Follow up visits to assess progress *I dentify resources available to help you quit smoking *Consider medication to increase your chances of successfully quitting smoking *Referral to counseling for additional support Reminders Provider Appointments Home on or around [facility] Visit 30 02/13/2020 KRISTIE Gutierrez Lab None recorded. Referral None [...] 1 tablet every day by oral route. ProAir HFA 90 mcg/actuation aerosol inhaler Inhale 2 puffs every 4 hours by inhalation route as n eeded. simvastatin 20 mg tablet Take 1 tablet every day by oral route for 90 days. spironolactone 25 mg tablet Take 1 tablet every day by oral route for 90 days. Symbicort 160 mcg-4.5 mcg/actuation HFA aerosol inhale r Inhale 2 puffs twice a day by inhalation route as dir ected. tamsulosin 0.4 mg capsule Take 1 capsule every day by oral route for 30 days. Medications Administered None recorded. Vitals Height Weight BMI Blood Pressure 5 ft 10 in 185 lbs 26.5 kg/m2 130/80 mm[Hg] Results Lab Results None recorded. Allergies Code Code System Name Reaction Severity Status Onset NKDA Problems Name Status Onset Date Source Congestive Heart Failure Active 01/26/2020 Chronic Obstructive Lung Disease Active 01/26/2020 Chronic Kidney Disease Stage 3 Active 01/26/2020 Essential Hypertension Active 01/27/2020 Benign Prostatic Hyperplasia Active 01/27/2020 Procedures Date Name Performed by 11/26/2012 Arthroplasty of Right Hip Joint Informat ion not available Vaccine List Vaccine Type influenza, recombinant, quadrIvalent,inj ectable, preservative free .5 mL pneumococcal polysaccharide PPV23 09/02/20190.5 mL Social History Tobacco Smoking Status Heavy Tobacco Smoker (1 PPD) Past Encounters 01/27/2020 Advance Directive Discussed with Patient ; Depression Screening; Nicotine Dependence; Congestive Heart Failure; Essential Hypertension; Benign Prostatic Hyperplasia; Body Mass Index 25-29 - Overweight; M ild Chronic Obstructive Pulmonary Diseas e; Hypercholesterolemia; History of Cerebrovascular Accident Anna Gutierrez, ENGLISH DRAWER: [address], [address], [place] [address], Ph. 01/26/2020 Taking Multiple Medications for Chronic Disease Justin Lang PHARMD: [address], [address], [place] [address], Ph. History of Present Illness COPD Reported By: Patient HPI:: COPD Staging: no prior yadira metry, GOLD Group B: CAT e 10, 0-1 exacerbations. Quality: coug h, shortness of breath. Duration: has noted for years. Severity: moderat e. Context: cigarette smoking. COPD Medications: using short act ing beta agonist no, using short acting anti-muscarinics yes, uses m aintenance inhalers daily yes, oral steroid courses in past year 0, usin g home oxygen no, uses oxygen: , patient has been offered COPD rescue pack (spirometry grade severe or very severe, 1 or more exacerbati ons in last year, 65 years +) yes. Alleviating factors: relieve d with rest. Aggravating factors: triggered by: cigarette smoking. Assoc iated Symptoms: no snoring, dyspnea during exertion, cough Mini Cog Reported By: Patient Functional Ability: Personal/Social/ Draw a cloc k and write in the numbers in the correct place, and set the t mika to 10 minutes after 11 o'clock was completed correctly? Yes , 3 word recall: Your nurse or doctor will ask you to remember 3 w ords. In 5 minutes, they will ask you to repeat them. Moreno marshall recalled 3 words Tobacco Cessation Reported By: Patient HPI: Duration: 76 years. Timing: daily. Quality: 20 cigarettes/day. Context: tobacco in house/car/work, d ue to habit/routine, has recieved Pneumococcal Vaccine. Associ ated Symptoms: no weight loss, no fever/chills/sweats, no fati fozia, cough, shortness of breath. Treatments tried: none Opioid Use Assessment Reported By: Patient Opioid Use Assessment:: Current Use of Opioids : no use of opioids (no further questions required) Review of Systems Comprehensive General Adult ROS Reported By: Patient ENMT: Mouth/Throat: no sore throat , no bleeding gums; patient has teeth loss Respiratory: Respiratory: cough, shortnes s of breath Gastrointestinal: Gastrointestinal: no abdomin al pain, no nausea, no vomiting, no constipation Genitourinary: Genitourinary: no incontinen ce, no difficulty urinating Musculoskeletal: Musculoskeletal: no muscle a ches, muscle weakness Integumentary: Skin: no abnormal mole, no j aundice, no rashes, no laceration Neurologic: Neurologic: no loss of consc iousness, no weakness, no numbness, no seizures, no di zziness Psychiatric: Psych: no depression, no sle ep disturbances, feeling safe in a relationship, no alcohol abu se, no anxiety, no hallucinations Endocrine: Endocrine: no fatigue Hematologic/Lymphatic: Hematologic/Lymphatic no swo llen glands, no bruising, no excessive bleeding Allergic/Immunologic: Allergy/Immunologic: no runn y nose, no sinus pressure, no itching, no hives, no freque nt sneezing Physical Exam General Adult Exam (male) Reported By: Patient Constitutional: General Appearance: healthy- appearing. Level of Distress: NAD. Ambulation: ambulating dragan lly Psychiatric: Insight: good judgement. Men melinda Status: active and alert, normal mood. Orientation: to time, to place, to person. Memory: recent memory normal Head: Head: normocephalic Eyes: Lids and Conjunctivae: non-i njected, no discharge, no pallor. Pupils: PERRLA. Corneas: samuel ssly intact. Fundoscopic: grossly normal except where noted. E OM: EOMI. Lens: clear ENMT: Ears: no lesions on external ear, EACs clear, TMs clear. Hearing: hearing decreased. Nose: no lesions on external nose, no nasal discharge. Lips, Teeth, and Gums: no mouth or lip ulcers. Oropharynx: moist mucous mem branes Neck: Thyroid: no enlargement, non -tender Lungs: Respiratory effort: dyspneic . Auscultation: breath sounds normal, expiratory wheezing Cardiovascular: Heart Auscultation: RRR, nor mal S1, normal S2, no murmurs, no rubs, no gallops. Neck vessels: no carotid bruits. Pulses including femoral / pedal: normal thro ughout Abdomen: Bowel Sounds: normal. Inspec tion and Palpation: soft, non-distended, no tenderness , no guarding, no rebound tenderness Musculoskeletal:: Motor Strength and Tone: abn ormal. Joints, Bones, and Muscles: no contractures, limited ROM. E xtremities: no cyanosis, no edema, no varicosities, no palpable co rd Neurologic: Gait and Station: irregular gait Skin: Inspection and palpation: no rash, no lesions, no ulcer
[2020-04-13 11:54] LABS: Absolute Lymphocytes (CBC) 0.7 K/uL (0.7-4.9); Basophils % 0.9 % (0-1.3); Hematocrit 36.8 % (39.6-49.0); Lymphocytes % 9.4 % (15.3-44.8); MPV 9.4 fL (7.6-11.3); RBC Red Blood Cell Count 4.17 M/uL (4.33-5.43)
[2020-04-13 12:00] LABS: Protime INR 1.24
--- NOTE | 2020-04-13 12:08 | RAD REPORT ---
EXAM DESCRIPTION: Valentino Single View04/13/2020 11:53 am CLINICAL HISTORY: cough COMPARISON: 2018 FINDINGS: Mild bilateral interstitial lung opacities suspected Heart is mildly enlarged IMPRESSION: These findings may indicate mild CHF
[2020-04-13 12:25] LABS: Albumin 3.2 g/dL (3.4-5.0); Bilirubin Direct 0.4 mg/dL (0-0.2); Bilirubin Total 0.9 mg/dL (0.2-1.0); CKMB Creatine Kinase MB 6.3 ng/mL (0.3-3.6); Magnesium 2.5 mg/dL (1.8-2.4); Potassium 3.9 mmol/L (3.5-5.1); Protein, Total 7.5 g/dL (6.4-8.2); Troponin (Emerg Dept Use Only) 0.04 ng/mL (0.0-0.045)
[2020-04-13] MEDS ORDERED: FUROSEMIDE 40 MG/4 ML VIAL ONE ×2 (12:51→16:07)
[2020-04-13] MEDS ORDERED: IPRATROPIUM BROM 0.5MG/2.5ML NEB PRN ×2 (12:58→17:00)
[2020-04-13] MEDS ORDERED: ALBUTEROL 2.5 MG/3 ML NEB SOL NEB PRN ×2 (12:58→17:00)
--- NOTE | 2020-04-13 13:36 | ER ---
Nurse's Notes [facility] Name: Juancho Avendaño Age: 84 yrs Sex: Male : 1935 Arrival Date: 04/13/2020 Time: 10:37 Bed 4 Private MD: Joleen Conde F Diagnosis: Combined systolic (congestive) and diastolic (congestive) heart failure Presentation: 04/13 10:54 Risk Assessment: Do you want to hurt yourself or someone else? Patient reports no sv desire to harm self or others. 10:55 Chief complaint: Patient's son or daughter states: "In and out" of confusion x 2-3 ph days, increased swelling to bilateral legs, worse on L side, pt noted to have labored respirations which daughter states is baseline, oriented to person, place, and time during triage, hx of COPD, CHF, and sepsis r/t kidney infection. Coronavirus screen: Surgical mask placed on patient. Patient moved to private room, placed in contact and droplet isolation with eye protection until further assessment. Patient reports a cough. Patient reports shortness of breath or difficulty breathing. Patient denies measured and/or subjective temperature greater than 100.4F prior to today's visit. Patient denies travel on a cruise ship or to a country the [facility] currently lists as an affected area. Patient denies contact with known and/or suspected case of COVID-19. Ebola Screen: No symptoms or risks identified at this time. Initial Sepsis Screen: Does the patient meet any 2 criteria?. Initial Sepsis Screen: Does the patient have a suspected source of infection? No. Patient's initial sepsis screen is negative. Onset of symptoms was April 13, 2020. 10:55 Method Of Arrival: Wheelchair ph 10:55 Acuity: GRISEL 2 ph 11:02 Acuity: GRISEL 2 ph Triage Assessment: 11:00 General: Appears in no apparent distress. uncomfortable, well developed, Behavior is sv calm, cooperative, appropriate for age. Pain: Denies pain. Neuro: Level of Consciousness is awake, alert, obeys commands, Oriented to person, time, Moves all extremities. Cardiovascular: Edema is 2+ to left ankle and right ankle Rhythm is sinus rhythm. Respiratory: Airway is patent Respiratory effort is even, labored, shallow, Respiratory pattern is symmetrical, tachypnea Parent/caregiver reports the patient having shortness of breath at rest on exertion cough that is non-productive, persistent labored breathing. Derm: Skin is normal. Musculoskeletal: Range of motion: intact in all extremities. Historical: - Allergies: 10:47 No Known Allergies; sv - PMHx: 10:47 COPD; Hypertension; sv 18:56 CVA; sv - PSHx: 18:56 hip; cataract; sv - Immunization history:: Adult Immunizations unknown. - Social history:: Smoking status: Patient reports the use of cigarette tobacco products, smokes one pack cigarettes per day. Screenin:47 Abuse screen: Denies threats or abuse. Denies injuries from another. Nutritional sv screening: No deficits noted. Tuberculosis screening: No symptoms or risk factors identified. Fall Risk None identified. Assessment: 11:35 Reassessment: Patient appears in no apparent distress at this time. No changes from sv previously documented assessment. Patient and/or family updated on plan of care and expected duration. Pain level reassessed. 12:55 Reassessment: Attempted to place a perez catheter using a 16F but unsuccessful. sv Attempted to use a 10F catheter and was unsuccessful. Attempted to use an 8F and was unsuccessful. Informed Dr Kemp. 13:50 Reassessment: Patient appears in no apparent distress at this time. No changes from sv previously documented assessment. Patient and/or family updated on plan of care and expected duration. Pain level reassessed. 14:30 Reassessment: Patient appears in no apparent distress at this time. No changes from sv previously documented assessment. Pt appears to be sleeping. 15:55 Reassessment: No changes from previously documented assessment. Patient and/or family sv updated on plan of care and expected duration. Pain level reassessed. Pt has had no improvement with respiratory status. Pt stated that he didn't feel like he couldn't breathe. O2 sat is 94% on RA, placed on O2 \\T\\ 2L per NC, O2 sat 99%. Asked Dr Kemp to come to the bedside, and informed of vitals and respiratory status. Ordered lasix 40 mg IVP x 1, ABG. 17:00 Reassessment: Dr Guillen at the bedside. He is attempted to place a perez catheter sv multiple times but was unsuccessful. Dr Kemp informed. 18:00 Reassessment: Patient appears in no apparent distress at this time. No changes from sv previously documented assessment. Patient and/or family updated on plan of care and expected duration. Pain level reassessed. 18:51 Reassessment: Inside lab at the bedside obtaining he recollect. sv 19:15 Reassessment: Patient appears in no apparent distress at this time. Patient and/or jb4 family updated on plan of care and expected duration. Pain level reassessed. Pt is resting in bed with no s/s of pain or distress noted. 20:30 Reassessment: Patient appears in no apparent distress at this time. Patient and/or jb4 family updated on plan of care and expected duration. Pain level reassessed. Pt transferred upstairs via stretchers with ob tech. Report Given to FELIX Murillo. Respiratory: Airway is patent Respiratory effort is even, labored, Respiratory pattern is regular, symmetrical, Breath sounds with rhonchi bilaterally. Vital Signs: 10:55 BP 117 / 74; Pulse 91; Resp 26; Temp 97.4; Pulse Ox 99% on R/A; ph 11:45 BP 120 / 74; Pulse 89; Resp 16; Pulse Ox 94% ; sv 12:30 BP 115 / 84; Pulse 88; Resp 20; Pulse Ox 94% ; sv 13:15 BP 110 / 81; Pulse 92; Resp 18; Pulse Ox 95% ; sv 14:00 BP 114 / 82; Pulse 88; Resp 18; Pulse Ox 95% ; sv 14:45 BP 122 / 77; Pulse 89; Resp 20; Pulse Ox 95% ; sv 15:30 BP 128 / 79; Pulse 91; Resp 23; Pulse Ox 96% 2 lpm ; sv 16:15 BP 128 / 76; Pulse 89; Resp 24; Pulse Ox 99% on 2 lpm NC; sv 19:58 BP 108 / 83; Pulse 86; Resp 15; Pulse Ox 95% on R/A; jb4 15:30 Pt was 94% RA. sv ED Course: 10:37 Patient arrived in ED. mr 10:37 Joleen Conde MD is Private Physician. mr 10:45 Penny Roberson, FELIX is Primary Nurse. sv 10:45 Arm band placed on Patient placed in an exam room, on a stretcher. sv 10:47 Patient has correct armband on for positive identification. Bed in low position. Call sv light in reach. 10:54 phototypesetting equipment monitor on. Pulse ox on. NIBP on. sv 10:59 Triage completed. ph 10:59 Akash Kemp MD is Attending Physician. kdr 11:20 Second set of blood cultures drawn by me. sv 11:35 First set of blood cultures drawn by me. Inserted saline lock: 20 gauge in right sv forearm, using aseptic technique. Blood collected. Flushed right forearm with 5 ml normal saline. 11:52 XRAY Chest (1 view) In Process Unspecified. EDMS 12:40 Basic Metabolic Panel Sent. sv 12:40 CBC with Diff Sent. sv 12:40 LFT's Sent. sv 12:40 Magnesium Sent. sv 13:34 Joleen Conde MD is Hospitalizing Provider. kdr 18:05 Lab(s) recollected. mh5 18:50 ABG Sent. sv 19:17 Primary Nurse role handed off by Penny Roberson RN sv 19:41 Rome Jacob, FELIX is Primary Nurse. jb4 20:11 Urine Microscopic Only Sent. ds4 20:15 No provider procedures requiring assistance completed. Patient admitted, IV remains in jb4 place. Administered Medications: 13:10 Drug: Lasix 40 mg Route: IVP; Site: right forearm; sv 14:02 Follow up: Response: No adverse reaction sv 15:55 Drug: Lasix 40 mg Route: IVP; Site: right forearm; sv 18:50 Follow up: Response: No adverse reaction sv 16:55 Drug: Lasix 20 mg Route: IVP; Site: right forearm; sv 18:52 Follow up: Response: No adverse reaction sv Output: 16:13 Other: 1 (Diapers) ; Total: 0ml. sv Outcome: 13:34 Decision to Hospitalize by Provider. kdr 20:15 Admitted to Med/surg accompanied by tech, via stretcher, room 203, with oxygen, with jb4 chart, Report called to FELIX Franklin 20:15 Condition: stable 20:15 Discharge instructions given to patient, family, Instructed on the need for admit, Demonstrated understanding of instructions. 20:42 Patient left the ED. jb4 Signatures: Dispatcher [employer] EDMS Penny Roberson, FELIX [place] Akash Kemp MD MD [facility] [place], Shamika mr Quiroga Gaurav ds4 Yvrose Bolton RN RN CecilRome duran RN RN jb4 Kami Mendez 5 Corrections: (The following items were deleted from the chart) 11:01 10:55 Coronavirus screen: Patient denies a cough. Patient reports shortness of breath sv or difficulty breathing. Patient denies measured and/or subjective temperature greater than 100.4F prior to today's visit. Patient denies travel on a cruise ship or to a country the [facility] currently lists as an affected area. Patient denies contact with known and/or suspected case of COVID-19. ph 11:02 10:55 Acuity: GRISEL 3 ph ph 11:06 10:55 Coronavirus screen: Patient denies a cough. Patient reports shortness of breath sv or difficulty breathing. Patient denies measured and/or subjective temperature greater than 100.4F prior to today's visit. Patient denies travel on a cruise ship or to a country the [facility] currently lists as an affected area. Patient denies contact with known and/or suspected case of COVID-19. sv
--- NOTE | 2020-04-13 13:36 | EDPHYS ---
Physician Documentation [facility] Name: Juancho Avendaño Age: 84 yrs Sex: Male : 1935 Arrival Date: 04/13/2020 Time: 10:37 Bed 4 Private MD: Joleen Conde F ED Physician Akash Kemp HPI: 04/13 16:19 This 84 yrs old Male presents to ER via Wheelchair with complaints of Altered kdr Mental Status, Leg Swelling. 16:19 The patient presents with confusion, decreased mental status, disorientation. Onset: kdr The symptoms/episode began/occurred gradually, at an unknown time. Possible causes: Shortness of breath. Associated signs and symptoms: Pertinent positives: confusion, shortness of breath. Current symptoms: In the emergency department the patient's symptoms are unchanged from the initial presentation. Patient's baseline: Neuro: alert but confused, Motor: no deficits. It is unknown whether or not the patient has had similar symptoms in the past. It is unknown whether or not the patient has recently seen a physician. 17:18 The daughter reports that the patient has noted increased peripheral swelling and SOB kdr for the last 5-7 days. Due to heavy smoking, the patient perpetually has SOB and raspy cough and breathing. Historical: - Allergies: 10:47 No Known Allergies; sv - PMHx: 10:47 COPD; Hypertension; sv 18:56 CVA; sv - PSHx: 18:56 hip; cataract; sv - Immunization history:: Adult Immunizations unknown. - Social history:: Smoking status: Patient reports the use of cigarette tobacco products, smokes one pack cigarettes per day. ROS: 17:18 Constitutional: Negative for fever, chills, and weight loss, Eyes: Negative for injury, kdr pain, redness, and discharge, Neck: Negative for injury, pain, and swelling, Cardiovascular: Negative for chest pain, palpitations, and edema, Abdomen/GI: Negative for abdominal pain, nausea, vomiting, diarrhea, and constipation, Back: Negative for injury and pain, : Negative for injury, bleeding, discharge, and swelling, MS/Extremity: Negative for injury and deformity, Skin: Negative for injury, rash, and discoloration, Psych: Negative for depression, anxiety, suicide ideation, homicidal ideation, and hallucinations, Allergy/Immunology: Negative for hives, rash, and allergies, Endocrine: Negative for neck swelling, polydipsia, polyuria, polyphagia, and marked weight changes, Hematologic/Lymphatic: Negative for swollen nodes, abnormal bleeding, and unusual bruising. 17:18 Respiratory: Positive for cough, "sounds productive", dyspnea on exertion, shortness of breath, at rest. 17:18 MS/extremity: Positive for swelling. 17:18 Neuro: Positive for altered mental status, weakness. kdr Exam: 17:18 Constitutional: This is a well developed, well nourished patient who is awake, alert, kdr and in no acute distress. Head/Face: Normocephalic, atraumatic. Eyes: Pupils equal round and reactive to light, extra-ocular motions intact. Lids and lashes normal. Conjunctiva and sclera are non-icteric and not injected. Cornea within normal limits. Periorbital areas with no swelling, redness, or edema. Vital Signs: 10:55 BP 117 / 74; Pulse 91; Resp 26; Temp 97.4; Pulse Ox 99% on R/A; ph 11:45 BP 120 / 74; Pulse 89; Resp 16; Pulse Ox 94% ; sv 12:30 BP 115 / 84; Pulse 88; Resp 20; Pulse Ox 94% ; sv 13:15 BP 110 / 81; Pulse 92; Resp 18; Pulse Ox 95% ; sv 14:00 BP 114 / 82; Pulse 88; Resp 18; Pulse Ox 95% ; sv 14:45 BP 122 / 77; Pulse 89; Resp 20; Pulse Ox 95% ; sv 15:30 BP 128 / 79; Pulse 91; Resp 23; Pulse Ox 96% 2 lpm ; sv 16:15 BP 128 / 76; Pulse 89; Resp 24; Pulse Ox 99% on 2 lpm NC; sv 19:58 BP 108 / 83; Pulse 86; Resp 15; Pulse Ox 95% on R/A; jb4 15:30 Pt was 94% RA. sv MDM: 13:34 Patient medically screened. kdr 15:20 Data reviewed: vital signs, nurses notes, lab test result(s), EKG, radiologic studies. kdr Counseling: I had a detailed discussion with the patient and/or guardian regarding: the historical points, exam findings, and any diagnostic results supporting the discharge/admit diagnosis, lab results, radiology results, the need for further work-up and treatment in the hospital. ED course: Have called Dr. Mc twice (13:30 \\T\\ 15:20) without response. If no response in 30 minutes, will call the service for admission. 04/13 11:09 Order name: Basic Metabolic Panel 04/13 11:09 Order name: CBC with Diff 04/13 11:09 Order name: LFT's 04/13 11:09 Order name: Magnesium 04/13 11:09 Order name: NT PRO-BNP; Complete Time: 12:33 sv 04/13 11:09 Order name: PT-INR; Complete Time: 12:33 sv 04/13 11:09 Order name: Troponin (emerg Dept Use Only); Complete Time: 12:33 sv 04/13 11:09 Order name: Amylase, Serum; Complete Time: 12:33 sv 04/13 11:09 Order name: Blood Culture Adult (2) 04/13 11:09 Order name: Ckmb; Complete Time: 12:33 sv 04/13 11:09 Order name: CPK; Complete Time: 12:33 sv 04/13 11:09 Order name: Lactate; Complete Time: 12:33 sv 04/13 11:09 Order name: Lipase; Complete Time: 12:33 sv 04/13 11:09 Order name: Procalcitonin sv 04/13 11:09 Order name: Ptt, Activated; Complete Time: 12:33 sv 04/13 11:09 Order name: Urine Microscopic Only 04/13 11:10 Order name: Basic Metabolic Panel; Complete Time: 12:33 EDMS 04/13 11:10 Order name: CBC with Automated Diff; Complete Time: 12:33 EDMS 04/13 11:10 Order name: Liver (Hepatic) Function; Complete Time: 12:33 EDMS 04/13 11:10 Order name: Magnesium; Complete Time: 12:33 EDMS 04/13 11:16 Order name: Flu; Complete Time: 12:33 hb 04/13 11:16 Order name: Strep; Complete Time: 12:33 hb 04/13 11:16 Order name: COVID-19 hb 04/13 12:21 Order name: Throat Culture EDUT 04/13 13:01 Order name: Basic Metabolic Panel EDUT 04/13 13:01 Order name: Basic Metabolic Panel EDUT 04/13 13:01 Order name: CBC with Automated Diff EDMS 04/13 13:01 Order name: CBC with Automated Diff EDMS 04/13 13:01 Order name: NT PRO-BNP EDUT 04/13 13:01 Order name: NT PRO-BNP EDUT 04/13 11:09 Order name: XRAY Chest (1 view); Complete Time: 12:33 sv 04/13 11:09 Order name: EKG; Complete Time: 11:10 sv 04/13 11:09 Order name: Cardiac monitoring; Complete Time: 12:40 sv 04/13 11:09 Order name: EKG - Nurse/Tech; Complete Time: 12:40 sv 04/13 11:09 Order name: IV Saline Lock; Complete Time: 14:31 sv 04/13 11:09 Order name: Labs collected and sent; Complete Time: 12:39 sv 04/13 11:09 Order name: O2 Per Protocol; Complete Time: 12:39 sv 04/13 11:09 Order name: O2 Sat Monitoring; Complete Time: 12:39 sv 04/13 11:09 Order name: IV Saline Lock - Large Bore; Complete Time: 12:39 sv 04/13 11:09 Order name: Urine Dipstick-Ancillary (obtain specimen); Complete Time: 20:11 sv 04/13 13:01 Order name: Low Sodium EDUT 04/13 13:01 Order name: Troponin I EDUT 04/13 13:01 Order name: Troponin I EDUT 04/13 13:02 Order name: Troponin I [facility] 04/13 16:12 Order name: ABG 04/13 16:20 Order name: Lactate Sepsis 2 HR Follow-up EDUT 04/13 16:34 Order name: ABG Arterial Blood Gas EDUT 04/13 17:13 Order name: Chem 7 04/13 18:14 Order name: Labs - recollect needed; Complete Time: 18:50 hb 04/13 19:28 Order name: Basic Metabolic Panel EDUT 04/13 20:12 Order name: Urine Dipstick--Ancillary (enter results) ds4 Administered Medications: 13:10 Drug: Lasix 40 mg Route: IVP; Site: right forearm; sv 14:02 Follow up: Response: No adverse reaction sv 15:55 Drug: Lasix 40 mg Route: IVP; Site: right forearm; sv 18:50 Follow up: Response: No adverse reaction sv 16:55 Drug: Lasix 20 mg Route: IVP; Site: right forearm; sv 18:52 Follow up: Response: No adverse reaction sv Disposition: 04/13/20 13:34 Hospitalization ordered by Joleen Conde for Inpatient Admission. Preliminary diagnosis is Combined systolic (congestive) and diastolic (congestive) heart failure. - Bed requested for Telemetry/MedSurg (Inpatient). - Status is Inpatient Admission. jb4 - Condition is Fair. - Problem is new. - Symptoms have improved. Signatures: Dispatcher [employer] EDMS Elaine Jaimes Stephanie, RN RN sv Akash Kemp MD MD [facility] Yvrose Bolton RN RN Savannah Gastelum, RN RN Rome Jacob, FELIX [place] jb4 Rob Simon RN RN ja1 Corrections: (The following items were deleted from the chart) 12:39 11:09 Accucheck ordered. sv sv 15:38 13:34 Hospitalization Ordered by Joleen Conde MD for Inpatient Admission. Preliminary bd diagnosis is Combined systolic (congestive) and diastolic (congestive) heart failure. Bed requested for Telemetry/MedSurg (Inpatient). Status is Inpatient Admission. Condition is Fair. Problem is new. Symptoms have improved. kdr 19:57 15:38 04/13/2020 13:34 Hospitalization Ordered by Joleen Conde MD for Inpatient ja1 Admission. Preliminary diagnosis is Combined systolic (congestive) and diastolic (congestive) heart failure. Bed requested for [facility] ER HOLD. Status is Inpatient Admission. Condition is Fair. Problem is new. Symptoms have improved. bd 20:42 19:57 04/13/2020 13:34 Hospitalization Ordered by Joleen Conde MD for Inpatient jb4 Admission. Preliminary diagnosis is Combined systolic (congestive) and diastolic (congestive) heart failure. Bed requested for Telemetry/MedSurg (Inpatient). Status is Inpatient Admission. Condition is Fair. Problem is new. Symptoms have improved. ja1
[2020-04-13 16:33] LABS: Blood Gas Oxyhemoglobin 95.9 % (94-97); Blood O2 Saturation 98.5 % (92-98.5)
[2020-04-13] MEDS: FUROSEMIDE 20 MG/ 2ML VIAL IV SCH (17:00)
[2020-04-13] MEDS ORDERED: FUROSEMIDE 20 MG/ 2ML VIAL ONE (17:19)
--- NOTE | 2020-04-13 18:58 | EKG ---
Test Date: 2020-04-13 Test Time: 11:30:41 Sodder: JENNIFER MEASUREMENT RESULTS: Intervals: Rate: 86 IA: 172 QRSD: 108 QT: 426 QTc: 509 Byron: P: 99 IA: 172 QRS: 68 T: 92 INTERPRETIVE STATEMENTS: Sinus rhythm with occasional premature ventricular complexes Anteroseptal infarct, age undetermined Prolonged QT Abnormal ECG Compared to ECG 02/28/2019 17:29:16 Ventricular premature complex(es) now present Prolonged QT interval now present Myocardial infarct finding still present Electronically Signed On 04-13-20 18:56:15 CDT by Popeye Doe
[2020-04-13 20:33] LABS: Urine Bacteria <20 /HPF (NONE SEEN); Urine Culture Reflex Order NOT NEEDED
[2020-04-13 20:44] LABS: Urine Blood 2+ (NEG); Urine Glucose NEGATIVE (NEG); Urine Protein NEGATIVE (NEG); Urine pH 5.5 (5.0-7.0)
[2020-04-13 20:49] VITALS: BMI 26.9
[2020-04-13] MEDS ORDERED: HOME MED 1 EA UNK (Simvastatin [Simvastatin] 20 MG) PO SCH (21:00)
[2020-04-13] MEDS ORDERED: ATORVASTATIN 10 MG TAB PO SCH (21:00)
--- NOTE | 2020-04-13 22:06 | CON ---
This pleasant 84-year-old gentleman with severe CHF in ER room #4 was called because the nurse had difficulty placing the Breaux catheter. On examining the patient, the foreskin is strictured, is also shortened and it seems like there is adhesion with the foreskin and the glans penis at the meatal area. I tried prepping and dilating this area with a clamp, but still unable to pass the Breaux catheter. Tried 14, but unable to pass. We tried a guidewire, was unable to pass, 2 fr Filliform was unable to pass. He needs a formal circumcision to cut away all this bad skin and get the glans penis exposed. Patient does not have urinary retention. He is voiding, so he does not need a suprapubic catheter at this time. Because his CHF is so severe, it is also not coronado to take him to the operating room at this time. Best thing is to weigh diapers to measure urine output at this time, I would recommend. TAMIR/KATELYN Voice ID: [id number] Report ID: [id number] ANTONIETA
[2020-04-14 06:18] LABS: Absolute Lymphocytes (CBC) 0.7 K/uL (0.7-4.9); Basophils % 0.7 % (0-1.3); Lymphocytes % 9.5 % (15.3-44.8); MPV 9.5 fL (7.6-11.3); RBC Red Blood Cell Count 3.76 M/uL (4.33-5.43)
[2020-04-14 07:15] LABS: Potassium 3.6 mmol/L (3.5-5.1)
[2020-04-14] MEDS ORDERED: METHYLPREDNISOLONE 40 MG INJ IV ONE (08:50)
[2020-04-14] MEDS ORDERED: ENOXAPARIN 40 MG/0.4 ML SQ SCH (09:00)
[2020-04-14 09:17] LABS: Arterial Blood Carboxyhemoglob 1.7 % (0-1.5); Blood Gas Oxyhemoglobin 88.2 % (94-97); Blood O2 Saturation 90.6 % (92-98.5)
--- NOTE | 2020-04-14 09:39 | RAD REPORT ---
EXAM DESCRIPTION: RAD - Chest Single View - 04/14/2020 9:00 am CLINICAL HISTORY: code blue Chest pain. COMPARISON: Chest Single View dated 04/13/2020; Chest Single View dated 02/28/2019 FINDINGS: Portable technique limits examination quality. Bilateral interstitial lung opacities again seen, slightly worse relative to comparative study. This may indicate mild worsening in CHF or volume overload. The heart is mildly enlarged in size. No displ aced fractures. IMPRESSION: Mild worsening in lung aeration since comparative examination.
[2020-04-14] MEDS: FUROSEMIDE 20 MG/ 2ML VIAL IV SCH ×2 (12:05→17:43)
[2020-04-14] MEDS: lisinopriL 20 MG TAB PO SCH (12:06)
--- NOTE | 2020-04-14 17:00 | P.PN ---
Subjective Date of Service: 04/14/20 Primary Care Provider: Dr. Conde Chief Complaint: Eren bills called. Subjective: Other (Nurses report that he was found cyanotic and not breathing. Code negar called. I responded to the code. When I arrived patient was alert. Apparently nurses noted that he was having some runs of PVCs. Then he went into V-tach. That is when the code was called. He apparently got some compressions. Patient now stable at this time. EKG shows sinus rhythm with PVCs.) Physical Examination - Vital Signs Temperature: 98.1 F Blood Pressure: 122/76 Pulse: 97 Respirations: 20 Pulse Ox (%): 95 - Physical Exam General: Alert Neck: Supple Respiratory: Diminished (Diminished bilateral) Cardiovascular: Normal pulses, Regular rate/rhythm Musculoskeletal: No tenderness, No warmth Neurological: Normal speech, Normal tone, Normal affect - Studies Microbiology Data (last 24 hrs): 04/13/20 11:35 Nasopharnyx Coronavirus COVID-19 PCR - Final 04/13/20 11:35 Throat Group A Streptococcus Rapid Screen - Final 04/13/20 11:35 Nasopharnyx Influenza Type A Antigen Screen - Final 04/13/20 11:35 Nasopharnyx Influenza Type B Antigen Screen - Final Medications List Reviewed: Yes Assessment & Plan Physician Review Additional Text: Impression/plan: Status post Code Blue/CPR. Patient found to have episode of V-tach. Patient with underlying history of systolic CHF, COPD, hypertension, BPH, and hyperte nsion. Compressions were done. Patient now in sinus rhythm with his PVCs. I ordered chest x-ray and IV Solu-Medrol 40 mg x1. Patient now on oxygen. I was able to get in contact with PCP/attending Dr. Conde. Explain to him in detail what had happened. He will continued to care for the patient. Lab reviewed. Chest x-ray reviewed. Patient should continue with Lasix. Maintain oxygen above 93%. Continue monitor on telemetry. After further review patient now DNR after attending discuss with family. Critical care: 20 min Time Spent Managing Pts Care (In Minutes): 20
--- NOTE | 2020-04-14 18:30 | PN ---
Subjective: The patient earlier this morning had a short run of VT. He was noted to be mildly cyano tic. A blue code was called on him. However, the patient hemodynamically recovered. No problems. He had few chest percussions. Right now, the patient is feeling well. Has no complaints. Objective: Vital Signs: His blood pressure 122/76, pulse 97, temperature 98.1. Heart: Regular rate and rhythm. Chest: Bilateral crackles. Abdomen: Soft. Benign. Neurological Examination: Alert, oriented, grossly intact. Laboratory Data: His O2 saturation on 2 L nasal cannula was more than 90%. Chest x-ray showed basic ally not much change with bilateral pulmonary opacities from pulmonary edema. CBC, hemoglobin 7.9, h ematocrit 33, white cell count 7.6, platelets 206. On his chemistry, BUN 54, creatinine 2.12, GFR 30 . Assessment And Plan: 1.Congestive heart failure, systolic, pending echo results. Continue the patient on IV Lasix. Ellen tor his electrolytes. Continue him on salt restriction and bedrest because of the patient have had # 2. 2.Short run of ventricular tachycardia. The patient had some chest percussions, but he is hemodynam ically stable now. His electrolytes are noted. Lovenox was stopped because of the chest percussions . We will put the patient on aspirin and SCD, lower extremity compression. 3.Acute renal failure on top of chronic, improved with diuresis. 4.The patient has had a problem catheterizing in anatomical skin over the head of his penis entering that. Dr. Guillen seen the patient and he thought that he could not catheterize him too. He thought t hat the patient's I and O would be monitored by weighing his diapers. We will continue current delin eated treatment. The patient is now hemodynamically stable and monitor his electrolytes. Look orders for details. MFS/MODL Voice ID: [id number] Report ID: [id number]
[2020-04-14] MEDS: ACETAMINOPHEN 500 MG TAB PO PRN (20:25)
--- NOTE | 2020-04-14 23:55 | HP ---
Date of Admission: 04/13/2020 History Of Present Illness: 84-year-old male with multiple medical problems including chronic systol ic congestive heart failure, been having increased shortness of breath and swelling in both his legs that is gradually getting worse along with increased shortness of breath for about a week. Workup in the emergency room for that showed that the patient is in congestive heart failure exacerbation. I went ahead and admitted the patient for that. The patient had no nausea, no vomiting, no chest pain, and voiced no other complaints. Review of Systems: Cardiovascular: No palpitation, no chest pain. Respiratory: As above. Gastrointestinal: No complaint. Genitourinary: No complaint. Skeletomuscular: No complaint. Neurological: Patient has significant bilateral decreased hearing, otherwise no complaint. Past Medical History: 1.Coronary artery disease. 2.Chronic renal insufficiency, stage 3. 3.COPD. 4.CHF. 5.Hypertension. 6.Hyperlipidemia. 7.Osteoarthritis multiple joints. 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 Social History: No smoking, alcohol, or drug abuse history. Family History: Noncontributing. Medications: Furosemide 40 mg p.o. daily, spironolactone 25 mg p.o. daily, simvastatin 20 mg p.o. da luis manuel, amlodipine 2.5 mg p.o. daily, Plavix 75 mg p.o. daily, omeprazole 20 mg p.o. daily, albuterol 2 puffs q.i.d. p.r.n., Symbicort 160 mg p.o. daily. Allergies: TETANUS TOXOID, OTHERWISE NO KNOWN DRUG ALLERGIES. Physical Examination: General: Patient's blood pressure 120/75, pulse 97, temperature 98.1. Heart: Regular rate and rhythm. Chest: Bilateral crackles. Abdomen: Soft, nontender. Bowel sounds are active. Extremities: 1 to 2+ bilateral pedal and pretibial pitting edema. Neurological: Bilateral decreased healing, otherwise grossly intact. No change except for his chron ic left-sided upper and lower extremity weakness 3/5 to 4/5 compared to the right, 5/5. Laboratory Data: Patient's chest x-ray showed CHF, possible pulmonary edema. CBC noted hemoglobin 1 2.1, hematocrit 36.8, platelets 241. Chemistry, patient's troponin 0.03. His BNP is 46,297. His BU N 58, creatinine 2.26. Assessment And Plan: 1.Congestive heart failure exacerbation. Patient is being admitted for bedrest, salt restriction, I V Lasix, and oxygen protocol. 2.The rest of his chronic medical illnesses are delineated in his HPI. We will continue his home me dicines and monitor him. 3.Look admit orders for details. MFS/MODL Voice ID: [id number]
[2020-04-15 05:41] LABS: Absolute Lymphocytes (CBC) 0.3 K/uL (0.7-4.9); Basophils % 0.2 % (0-1.3); Hematocrit 32.9 % (39.6-49.0); MPV 8.9 fL (7.6-11.3); RBC Red Blood Cell Count 3.72 M/uL (4.33-5.43)
[2020-04-15] MEDS: ACETAMINOPHEN 500 MG TAB PO PRN ×3 (05:46→22:29)
[2020-04-15 05:58] LABS: Potassium 3.8 mmol/L (3.5-5.1)
[2020-04-15 06:28] LABS: Blood Morphology Comment NOT SEEN (NOT SEEN); Platelet Estimate ADEQ
[2020-04-15] MEDS: ASPIRIN EC 81 MG TAB PO SCH (07:46)
[2020-04-15] MEDS: lisinopriL 20 MG TAB PO SCH (07:46)
[2020-04-15] MEDS: TAMSULOSIN 0.4 MG SR CAP PO SCH (07:47)
[2020-04-15] MEDS: FUROSEMIDE 20 MG/ 2ML VIAL IV SCH (07:48)
[2020-04-15] MEDS ORDERED: FUROSEMIDE 40 MG/4 ML VIAL IV ONE (07:57)
--- NOTE | 2020-04-15 08:33 | RAD REPORT ---
EXAM DESCRIPTION: RAD - Chest Single View - 04/15/2020 8:22 am CLINICAL HISTORY: increase in resp distress COMPARISON: Portable April 14, portable April 13 TECHNIQUE: AP portable chest image was obtained 04/15/2020 8:22 am . FINDINGS: Lung volumes similar to comparison. There is continued worsening of the interstitial and a lveolar opacities. Right pleural effusion is now present. No measurable left pleural effusion. Cardio megaly remains with vascular engorgement. Trachea is midline. No pneumothorax. IMPRESSION: Further worsening of the interstitial and alveolar opacities in each lung field. Development or progression of right pleural effusion.
--- NOTE | 2020-04-15 10:00 | ECHO ---
HEIGHT: 5 ft 10 in WEIGHT: 188 lb 14.4 oz DATE OF STUDY: 04/14/[address]: Akash Kemp MD 2-DIMENSIONAL: YES M.MODE: YES DOPPLER: YES COLOR FLOW: YES TDS: NO PORTABLE: NO DEFINITY: NO BUBBLE STUDY: NO DIAGNOSIS: ACUTE ONSET PULMONARY EDEMA, STATUS POST CPR CARDIAC HISTORY: CATHERIZATION: YES SURGERY: NO PROSTHETIC VALVE: NO PACEMAKER: NO MEASUREMENTS (cm) DIASTOLIC (NORMALS) SYSTOLIC (NORMALS) IVSd 1.0 (0.6-1.2) LA Diam 3.2 (1.9-4.0) LVEF 15-20% LVIDd 5.7 (3.5-5.7) LVIDs 4.5 (2.0-3.5) %FS % LVPWd 1.2 (0.6-1.2) Ao Diam 2.6 (2.0-3.7) 2 DIMENSIONAL ASSESSMENT: RIGHT ATRIUM: NORMAL LEFT ATRIUM: NORMAL RIGHT VENTRICLE: NORMAL LEFT VENTRICLE: NORMAL SIZE TRICUSPID VALVE: NORMAL MITRAL VALVE: NORMAL PULMONIC VALVE: NORMAL AORTIC VALVE: SCLEROSIS PERICARDIAL EFFUSION: NONE AORTIC ROOT: NORMAL LEFT VENTRICULAR WALL MOTION: SEVERE GLOBAL HYPOKINESIS. DOPPLER/COLOR FLOW: MILD TRICUSPID REGURGITATION. COMMENTS: SEVERE GLOBAL HYPOKINESIS. LEFT VENTRICULAR EJECTION FRACTION 15-20%. MILD TRICUSPID REGURGITATION. NORMAL RIGHT VENTRICULAR SYSTOLIC PRESSURE. NO EFFUSION. AORTIC SCLEROSIS WITH NO STENOSIS. TECHNOLOGIST: Devin TAO
--- NOTE | 2020-04-15 11:38 | CON ---
Date of Consultation: 04/14/2020 Reason For Consultation: Congestive heart failure, ventricular tachycardia, and brief cardiac arrest . History Of Present Illness: Mr. Ramesh is an 84-year-old white male. He does have a history of COPD , hypertension, cerebrovascular accidents, dyslipidemia, coronary artery disease, chronic renal disea se, gout, benign prostatic hypertrophy. He carries a diagnosis of congestive heart failure that is p robably chronic and diastolic. His ejection fraction was normal in February 2019. He came in with COPD exacerbation and congestive heart failure. While he was being treated for that, he became very hypo xic, had a short run of ventricular tachycardia and a brief episode of CPR, but did not require intub ation. His last blood gas was 62 pO2, pCO2 of 28, and pH of 7.41. No chest pain was reported. His BNP was 45,276. Allergies: TETANUS. Review of Systems: Negative. Social History: Positive for tobacco use. Family History: Noncontributory. Medications: At home include albuterol inhaler, Norvasc, Plavix Lasix, Zestril, Zocor, Aldactone, an d Flomax. Physical Examination: General: Mr. Ramesh appeared to be obtunded, confused. Vital Signs: Stable. He was afebrile. He was in sinus rhythm when I saw him. HEENT: Negative. Neck: Supple without any lymphadenopathy or thyromegaly, but he did have JVD about 3 cm to the angle of the jaw. Chest: Reveals crackles and wheezing and rales throughout the lungs. Cardiac: Revealed a regular rhythm and rate with S3 gallops, but no murmurs or rubs. Abdomen: Benign. Extremities: Revealed no clubbing, cyanosis. He had trace edema. Diagnostic Data: His EKG showed sinus rhythm with old anteroseptal [place]. BNP was 45,276. Creatinine was 1.94. Impression And Plan: 1.Congestive heart failure, most likely acute on chronic diastolic congestive heart failure, althoug h he has physical findings of S3 and rales and he may have systolic congestive heart failure as well. His episode of ventricular tachycardia was secondary to hypoxia and congestive heart failure. I th ink he needs to have an echocardiogram done today. We should continue his present regimen, which now includes aspirin, Lasix, lisinopril, and Flomax. We have to watch his kidney functions, I's and O's , and weight. 2.His other problems including chronic obstructive pulmonary disease, hypertension, history of cereb rovascular accident, dyslipidemia, coronary artery disease, chronic renal disease, gout, and BPH are stable at this point. I will continue to follow him along with Dr. Conde. GLORIA/KATELYN Voice ID: [id number] Report ID: [id number]
--- NOTE | 2020-04-15 11:41 | PN ---
Date of Progress Note: 04/15/2020 Mr. Ramesh was admitted by Dr. Conde on 04/13/2020. I saw him on 04/14/2020 because of ventricular tachycardia, CPR, congestive heart failure. He has been given aspirin, Lasix, lisinopril, and Floma x and has been diuresing fairly well since yesterday's episode. He has not had any further ventricul ar tachycardia. He remains, however, obtunded and remains short of breath. Has adequate O2 saturati ons, on nasal cannula. Echocardiogram, which was done yesterday, revealed an ejection fraction about 20% to 25% with severe global hypokinesis, no effusion. He has a mitral annular calcification and a ortic sclerosis without stenosis. We are obviously dealing with severe acute systolic congestive hea rt failure. I think he should continue the aspirin Lasix, lisinopril, and Flomax. We should conside r to put him on carvedilol 3.125 mg b.i.d. Apparently, the patient had been made a [id number] e. He is obviously not a candidate for coronary intervention. I think his mainstay of therapy shoul d be Lasix, lisinopril, carvedilol, salt restriction, fluid restriction, and conservative measures. I will sign off his case for now. I will be available for questions if the need arises. I will disc uss the case with Dr. Conde later. GLORIA/MARCIAL Voice ID: [id number] Report ID: [id number]
[2020-04-15] MEDS: ALBUTEROL 2.5 MG/3 ML NEB SOL NEB SCH ×2 (13:15→19:42)
[2020-04-15 13:31] LABS: Potassium 3.8 mmol/L (3.5-5.1)
[2020-04-15] MEDS: FUROSEMIDE 40 MG/4 ML VIAL IV SCH (16:23)
--- NOTE | 2020-04-15 18:33 | PN ---
Subjective: Patient still complains of shortness of breath. No other complaints. Objective: Vital Signs: Patient's blood pressure 115/70, pulse 88, temperature 97.3. Heart: Regular rate and rhythm. Chest: Bilateral crackles with end-expiratory wheezing. Abdomen: Soft, benign. Bowel sounds are normoactive. Nontender. Extremities: Trace edema, bilateral. Neurological: Alert, oriented, and grossly intact. No change. Laboratory And Imaging Data: Chest x-ray this morning showed progression of alveolar interstitial sp aces worsening and right pleural effusion, worse than yesterday. CBC noted hemoglobin 10.9, hematocrit 32.9, platelets 190. Chemistry; BUN 58, creatinine 1.94. The rest of his chemistry noted. Microbiology noted COVID-19 negative. Influenza negative, A and B. Blood cultures, no growth to desmond e. Upper respiratory, normal valencia from the throat. Cardiac echo showed left ventricular ejection fraction of 15% to 20%. Assessment And Plan: 1.Acute exacerbation of systolic heart failure on top of chronic systolic congestive heart failure w ith pulmonary edema. It has been hard to measures urine output because of inability to catheterize t he patient; however, the nurse reports patient is wetting his diapers frequently. We will go ahead a nd put a penile condom collecting bag see if that will work to measure his urine output. We are adrienne g to increase his IV Lasix to 60 mg IV b.i.d. Monitor his electrolytes on electrolyte protocol. Shin goldsteinue the rest of his treatment. Cardiology, Dr. Doe, have seen the patient. He also thinks lilly t the patient may have diastolic heart failure, controlled with current management. 2.History of chronic obstructive pulmonary disease. We are going to add the patient on Solu-Medrol and albuterol breathing treatments, and we will continue his oxygen pr otocol. Look orders for details. MFS/MODL Voice ID: [id number] Report ID: [id number]
[2020-04-16] MEDS: ALBUTEROL 2.5 MG/3 ML NEB SOL NEB SCH ×3 (00:44→12:36)
[2020-04-16] MEDS ORDERED: NALOXONE 0.4 MG/ML VIAL ONE (04:48)
--- NOTE | 2020-04-16 06:26 | EKG ---
Test Date: 2020-04-14 Test Time: 08:46:36 Electrician Substation: JENNIFER MEASUREMENT RESULTS: Intervals: Rate: 100 ND: 162 QRSD: 116 QT: 350 QTc: 451 [place]: P: 65 ND: 162 QRS: 91 T: 257 INTERPRETIVE STATEMENTS: Undetermined rhythm Rightward axis Cannot rule out Inferior infarct, age undetermined Anteroseptal infarct, age undetermined Abnormal ECG Compared to ECG 04/14/2020 08:44:46 Sinus tachycardia no longer present Ventricular premature complex(es) no longer present ST (T wave) deviation no longer present Possible ischemia no longer present Myocardial infarct finding still present Electronically Signed On 04-16-20 06:24:20 CDT by Popeye Doe
--- NOTE | 2020-04-16 06:27 | EKG ---
Test Date: 2020-04-14 Test Time: 08:44:46 Human Resource Advisor: JENNIFER MEASUREMENT RESULTS: Intervals: Rate: 102 WI: 150 QRSD: 114 QT: 362 QTc: 471 [place]: P: WI: 150 QRS: 96 T: -76 INTERPRETIVE STATEMENTS: Sinus tachycardia with occasional premature ventricular complexes Rightward axis Septal infarct, age undetermined ST & T wave abnormality, consider inferior ischemia Abnormal ECG Compared to ECG 04/13/2020 11:30:41 Right-axis deviation now present ST (T wave) deviation now present Possible ischemia now present Sinus rhythm no longer present Prolonged QT interval no longer present Myocardial infarct finding still present Electronically Signed On 04-16-20 06:24:22 CDT by Popeye Doe
[2020-04-16] MEDS: ACETAMINOPHEN 500 MG TAB PO PRN (08:31)
[2020-04-16] MEDS: TAMSULOSIN 0.4 MG SR CAP PO SCH (08:31)
[2020-04-16] MEDS: ASPIRIN EC 81 MG TAB PO SCH (08:31)
[2020-04-16] MEDS: lisinopriL 20 MG TAB PO SCH (08:32)
[2020-04-16] MEDS: FUROSEMIDE 40 MG/4 ML VIAL IV SCH ×2 (08:33→16:26)
--- NOTE | 2020-04-16 08:56 | RAD REPORT ---
EXAM DESCRIPTION: Valentino Single View04/16/2020 7:49 am CLINICAL HISTORY: Shortness of breath COMPARISON: April 15 FINDINGS: Mild worsening in the right basilar opacity No change in additional bilateral pulmonary opacities likely pulmonary edema Heart remains enlarged. Pleural effusion suspected
[2020-04-16] MEDS ORDERED: ALBUTEROL 2.5 MG/3 ML NEB SOL NEB PRN (13:43)
[2020-04-16] MEDS: HYDROCODONE/APAP 5/325 MG TAB PO PRN (16:25)
--- NOTE | 2020-04-16 18:08 | P.PN ---
Subjective Date of Service: 04/16/20 Primary Care Provider: Dr. Conde Chief Complaint: Code blue called. Subjective: Other (Patient stable at this time. Some shortness of breath noted.) Physical Examination - Vital Signs Temperature: 97.7 F Blood Pressure: 110/69 Pulse: 105 Respirations: 23 Pulse Ox (%): 94 - Physical Exam General: Alert HEENT: Atraumatic Neck: Supple Respiratory: Crackles/rales (Crackles to the bases) Cardiovascular: Normal pulses, Regular rate/rhythm Gastrointestinal: Normal bowel sounds, Non-distended Integumentary: Tenderness/swelling (2+ pitting edema to the lower extremities) Neurological: Normal speech, Normal affect - Studies Medications List Reviewed: Yes Assessment & Plan Discharge Plan: Skilled Nursing Plan to discharge in: Greater than 2 days Physician Review Additional Text: Impression: Acute on chronic respiratory failure secondary to acute on chronic systolic CHF with ejection fraction 15-20% complicated with COPD exacerbation Hypertension Plan: I am covering for Dr. Mc. Spoke with family and patient. Patient is do not resuscitate. Plan of care addressed with family. Due to patient's current medical status and medical problems, they understand his poor prognosis. They will pursue senior living placement with hospice in place. At this time will c ontinue with IV diuretic therapy. Will adjust blood pressure medication. Will provide COPD medication and prednisone. Will provide oxygen to maintain sats above 93%. Case discussed in detail with family and upper caser. Will pursue senior living placement with hospice. This will likely occur in the next 72 hr. Time Spent Managing Pts Care (In Minutes): 55
[2020-04-16] MEDS: ATORVASTATIN 10 MG TAB PO SCH (20:04)
[2020-04-16] MEDS: predniSONE 10 MG TAB PO SCH (20:05)
[2020-04-16] MEDS: FAMOTIDINE 20 MG TAB PO SCH (20:05)
[2020-04-16] MEDS: DULERA 100/5 (MOMETASONE/FORMOTEROL) INHALER IH SCH (20:05)
[2020-04-16] MEDS ORDERED: NITROGLYCERIN 1 GM PKT TD ONE (21:31)
[2020-04-16] MEDS ORDERED: ENOXAPARIN 80 MG/0.8 ML SQ ONE (21:31)
[2020-04-17] MEDS: TRAMADOL HCL 50 MG TAB PO PRN ×3 (01:58→20:18)
[2020-04-17 06:26] LABS: Magnesium 2.4 mg/dL (1.8-2.4); Phosphorus 3.8 mg/dL (2.5-4.9); Potassium 3.6 mmol/L (3.5-5.1)
[2020-04-17] MEDS: ALBUTEROL 2.5 MG/3 ML NEB SOL NEB PRN ×2 (07:45→12:20)
[2020-04-17] MEDS ORDERED: lisinopriL 10 MG TAB PO SCH (09:00)
[2020-04-17] MEDS ORDERED: HOME MED 1 EA UNK (Simvastatin [Simvastatin] 1 TAB) PO SCH (09:00)
[2020-04-17] MEDS ORDERED: POTASSIUM CL SA 10 MEQ TAB PO ONE (09:00)
[2020-04-17] MEDS: FUROSEMIDE 40 MG/4 ML VIAL IV SCH ×2 (09:01→16:29)
[2020-04-17] MEDS: predniSONE 10 MG TAB PO SCH ×2 (09:02→20:02)
[2020-04-17] MEDS: FAMOTIDINE 20 MG TAB PO SCH ×2 (09:06→20:01)
[2020-04-17] MEDS: DULERA 100/5 (MOMETASONE/FORMOTEROL) INHALER IH SCH ×2 (09:06→20:04)
[2020-04-17] MEDS: THIAMINE HCL 100 MG TABLET PO SCH (09:06)
[2020-04-17] MEDS: FOLIC ACID 1 MG TABLET PO SCH (09:06)
[2020-04-17] MEDS: ASPIRIN EC 81 MG TAB PO SCH (09:06)
[2020-04-17] MEDS: TAMSULOSIN 0.4 MG SR CAP PO SCH (09:06)
[2020-04-17] MEDS: CLOPIDOGREL 75 MG TABLET PO SCH (09:06)
[2020-04-17] MEDS ORDERED: ONDANSETRON 4 MG/2 ML VIAL IV PRN (10:58)
[2020-04-17] MEDS: HYDROCODONE/APAP 5/325 MG TAB PO PRN (11:02)
[2020-04-17] MEDS ORDERED: ONDANSETRON 4 MG/2 ML VIAL ONE (11:08)
--- NOTE | 2020-04-17 13:38 | P.PN ---
Subjective Date of Service: 04/17/20 Primary Care Provider: Dr. Conde Subjective: Other (Patient appears stable. Patient on nasal cannula.) Physical Examination - Vital Signs Temperature: 97.8 F Blood Pressure: 84/55 Pulse: 61 Respirations: 20 Pulse Ox (%): 95 - Physical Exam General: Alert, Cooperative HEENT: Atraumatic Neck: Supple Respiratory: Crackles/rales (To the bases) Gastrointestinal: Normal bowel sounds, No tenderness, No masses, No rebound, No guarding Musculoskeletal: No warmth Integumentary: Tenderness/swelling (2 + pitting edema to the lower extremities) Neurological: Normal speech - Studies Medications List Reviewed: Yes Assessment & Plan Discharge Plan: Other (skilled nursing with hospice) Plan to discharge in: 72 Hours Physician Review Additional Text: Impression: Acute on chronic respiratory failure secondary to acute on chronic systolic CHF with ejection fraction 15-20% complicated with COPD exacerbation Hypertension Plan: I am covering for Dr. Mc. Spoke with family and patient yesterday. Patient is do not resuscitate. Plan of care is to send patient to skilled nursing with hospice in place. Will decrease lisinopril due to low blood pressures. Will hold lisinopril if blood pressure systolic less than 110. Will also decrease IV Lasix. Will hold if blood pressure less than 110. Continue to monitor closely. Patient also on COPD medication. Maintain sats above 93%. Patient on prednisone and COPD medication to help with his condition. Spoke with pillowcase cutter yesterday. Likely skilled nursing placement with hospice on Sunday. Time Spent Managing Pts Care (In Minutes): 55
[2020-04-17] MEDS ORDERED: FUROSEMIDE 40 MG/4 ML VIAL IV SCH (17:00)
[2020-04-17] MEDS: HEPARIN 5000 UNIT/ML 1 ML VIAL SQ SCH (20:02)
[2020-04-17] MEDS: ATORVASTATIN 10 MG TAB PO SCH (20:04)
[2020-04-18 06:16] LABS: Absolute Lymphocytes (CBC) 0.3 K/uL (0.7-4.9); Basophils % 0.3 % (0-1.3); Hematocrit 31.9 % (39.6-49.0); Lymphocytes % 3.7 % (15.3-44.8); MPV 8.9 fL (7.6-11.3); RBC Red Blood Cell Count 3.64 M/uL (4.33-5.43)
[2020-04-18 06:26] LABS: Magnesium 2.5 mg/dL (1.8-2.4); Phosphorus 4.7 mg/dL (2.5-4.9); Potassium 4.3 mmol/L (3.5-5.1)
[2020-04-18] MEDS: FUROSEMIDE 40 MG/4 ML VIAL IV SCH ×2 (09:00→17:00)
[2020-04-18] MEDS: ASPIRIN EC 81 MG TAB PO SCH (10:06)
[2020-04-18] MEDS: FOLIC ACID 1 MG TABLET PO SCH (10:06)
[2020-04-18] MEDS: THIAMINE HCL 100 MG TABLET PO SCH (10:06)
[2020-04-18] MEDS: predniSONE 10 MG TAB PO SCH ×2 (10:06→21:54)
[2020-04-18] MEDS: FAMOTIDINE 20 MG TAB PO SCH ×2 (10:06→21:54)
[2020-04-18] MEDS: TAMSULOSIN 0.4 MG SR CAP PO SCH (10:07)
[2020-04-18] MEDS: CLOPIDOGREL 75 MG TABLET PO SCH (10:07)
[2020-04-18] MEDS: lisinopriL 10 MG TAB PO SCH (10:07)
[2020-04-18] MEDS: DULERA 100/5 (MOMETASONE/FORMOTEROL) INHALER IH SCH ×2 (10:08→21:55)
[2020-04-18] MEDS: HEPARIN 5000 UNIT/ML 1 ML VIAL SQ SCH ×2 (10:11→21:54)
[2020-04-18] MEDS: ACETAMINOPHEN 500 MG TAB PO PRN ×2 (11:01→22:14)
[2020-04-18] MEDS: ALBUTEROL 2.5 MG/3 ML NEB SOL NEB PRN (14:25)
--- NOTE | 2020-04-18 15:29 | P.PN ---
Subjective Date of Service: 04/18/20 Primary Care Provider: Dr. Conde Chief Complaint: Code blue called. Subjective: Improving, Doing well Physical Examination - Vital Signs Temperature: 97.6 F Blood Pressure: 108/55 Pulse: 79 Respirations: 16 Pulse Ox (%): 95 - Physical Exam General: Alert, Cooperative HEENT: Atraumatic Neck: Supple Respiratory: Crackles/rales (Bilateral) Cardiovascular: Regular rate/rhythm Gastrointestinal: Normal bowel sounds Musculoskeletal: No warmth Integumentary: Tenderness/swelling (2+ pitting edema to the lower extremities) Neurological: Normal speech, Normal strength at 5/5 x4 extr, Normal tone - Studies Microbiology Data (last 24 hrs): 04/13/20 11:20 Blood - Blood Aerobic Blood Culture - Final No growth in 5 days. 04/13/20 11:20 Blood - Blood Anaerobic Blood Culture - Final No growth in 5 days. 04/13/20 11:35 Blood - Blood Aerobic Blood Culture - Final No growth in 5 days. 04/13/20 11:35 Blood - Blood Anaerobic Blood Culture - Final No growth in 5 days. Medications List Reviewed: Yes Assessment & Plan Discharge Plan: Other (group home with hospice in place) Plan to discharge in: 48 Hours Physician Review Additional Text: Impression: Acute on chronic respiratory failure secondary to acute on chronic systolic CHF with ejection fraction 15-20% complicated with COPD exacerbation Hypertension BPH Hyperlipidemia Anemia of chronic disease Chronic renal failure stage 3 Plan: Acute on chronic respiratory failure secondary to acute on chronic systolic CHF with ejection fraction 15-20% complicated with COPD exacerbation: I am covering for Dr. Conde. Spoke with family the other day. Patient is do not resuscitate. Plan of care is to send patient to the longterm with hospice in place. Lisinopril decreased yesterday due to low blood pressure. Continue IV Lasix. Continue 1500 cc per day fluid restriction. Maintain sats above 93%. Will discuss further with social work on Sunday. Continue with COPD medication. Hypertension: Lisinopril was added. This has been decreased due to low blood pressure. BPH: Continue medication Hyperlipidemia: Continue medication Anemia of chronic disease: Continue to monitor closely. Chronic renal failure stage 3: Continue to monitor closely. Time Spent Managing Pts Care (In Minutes): 55
[2020-04-18] MEDS: ATORVASTATIN 10 MG TAB PO SCH (21:54)
[2020-04-19] MEDS: TRAMADOL HCL 50 MG TAB PO PRN ×2 (04:13→21:20)
[2020-04-19 06:16] LABS: Absolute Lymphocytes (CBC) 0.3 K/uL (0.7-4.9); Basophils % 0.3 % (0-1.3); Hematocrit 32.7 % (39.6-49.0); Lymphocytes % 4.1 % (15.3-44.8); RBC Red Blood Cell Count 3.74 M/uL (4.33-5.43)
[2020-04-19 06:21] LABS: Magnesium 2.5 mg/dL (1.8-2.4); Potassium 4.6 mmol/L (3.5-5.1)
[2020-04-19] MEDS: ALBUTEROL 2.5 MG/3 ML NEB SOL NEB PRN ×3 (07:20→17:36)
[2020-04-19] MEDS: HEPARIN 5000 UNIT/ML 1 ML VIAL SQ SCH ×2 (08:47→21:06)
[2020-04-19] MEDS: DULERA 100/5 (MOMETASONE/FORMOTEROL) INHALER IH SCH ×2 (08:47→21:05)
[2020-04-19] MEDS: TAMSULOSIN 0.4 MG SR CAP PO SCH (08:47)
[2020-04-19] MEDS: THIAMINE HCL 100 MG TABLET PO SCH (08:47)
[2020-04-19] MEDS: FAMOTIDINE 20 MG TAB PO SCH ×2 (08:47→21:05)
[2020-04-19] MEDS: CLOPIDOGREL 75 MG TABLET PO SCH (08:47)
[2020-04-19] MEDS: predniSONE 10 MG TAB PO SCH ×2 (08:47→21:05)
[2020-04-19] MEDS: ASPIRIN EC 81 MG TAB PO SCH (08:47)
[2020-04-19] MEDS: FOLIC ACID 1 MG TABLET PO SCH (08:47)
[2020-04-19] MEDS: FUROSEMIDE 40 MG TABLET PO SCH ×2 (08:54→17:18)
[2020-04-19] MEDS: lisinopriL 10 MG TAB PO SCH (08:54)
[2020-04-19 13:24] LABS: Blood Morphology Comment NOTED (NOT SEEN); Burr Cells 1+; Platelet Estimate ADEQ; Urine White Blood Cell Casts OK
--- NOTE | 2020-04-19 14:06 | P.PN ---
Subjective Date of Service: 04/19/20 Primary Care Provider: Dr. Conde Chief Complaint: s/p VT Subjective: No new changes, Other (Complains of headache No fever or chills No acute events) Review of Systems 10-point ROS is otherwise unremarkable Physical Examination - Vital Signs Temperature: 97 F Blood Pressure: 101/52 Pulse: 84 Respirations: 22 Pulse Ox (%): 94 - Physical Exam General: Alert, In no apparent distress HEENT: Atraumatic, Normocephalic Neck: Supple, No Thyromegaly Respiratory: Diminished, Crackles/rales, Expiratory wheezes Cardiovascular: Normal pulses, Regular rate/rhythm, Normal S1 S2 Capillary refill: <2 Seconds Gastrointestinal: Soft and benign, W/out hepatosplenomegaly Musculoskeletal: No clubbing, No swelling Integumentary: No rashes, No tenderness/swelling Neurological: Normal speech, Normal strength at 5/5 x4 extr Lymphatics: No axilla or inguinal lymphadenopathy Rectal: Deferred - Studies Laboratory Tests 04/13/20 04/13/20 04/13/20 11:30 11:35 11:35 WBC 7.8 RBC 4.17 L Hgb 12.1 L Hct 36.8 L MCV 88.3 MCH 29.0 MCHC 32.8 RDW 15.7 H Plt Count 241 MPV 9.4 Neutrophils % 77.0 H Lymphocytes % 9.4 L Monocytes % 11.0 Eosinophils % 1.7 Basophils % 0.9 Absolute Neutrophils 6.0 Absolute Lymphocytes 0.7 Absolute Monocytes 0.9 Absolute Eosinophils 0.1 Absolute Basophils 0.1 PT INR APTT Sodium 135 L Potassium 3.9 Chloride 102 Carbon Dioxide 22 BUN 59 H Creatinine 2.33 H Estimated GFR 27 L Glucose 131 H Lactic Acid 2.1 H Calcium 9.6 Magnesium 2.5 H Total Bilirubin 0.9 Direct Bilirubin 0.4 H AST 39 H ALT 34 Alkaline Phosphatase 57 Creatine Kinase 176 CK-MB (CK-2) 6.3 H Rapid Troponin I 0.04 NT-Pro-B Natriuret Pep 01748 H Serum Total Protein 7.5 Albumin 3.2 L Globulin 4.3 H Albumin/Globulin Ratio 0.7 L Amylase 50 Lipase 174 Procalcitonin 04/13/20 04/13/20 11:35 11:35 WBC RBC Hgb Hct MCV MCH MCHC RDW Plt Count MPV Neutrophils % Lymphocytes % Monocytes % Eosinophils % Basophils % Absolute Neutrophils Absolute Lymphocytes Absolute Monocytes Absolute Eosinophils Absolute Basophils PT 14.6 H INR 1.24 APTT 28.0 Sodium Potassium Chloride Carbon Dioxide BUN Creatinine Estimated GFR Glucose Lactic Acid Calcium Magnesium Total Bilirubin Direct Bilirubin AST ALT Alkaline Phosphatase Creatine Kinase CK-MB (CK-2) Rapid Troponin I NT-Pro-B Natriuret Pep Serum Total Protein Albumin Globulin Albumin/Globulin Ratio Amylase Lipase Procalcitonin 0.08 Microbiology Data (last 24 hrs): 04/13/20 11:20 Blood - Blood Aerobic Blood Culture - Final No growth in 5 days. 04/13/20 11:20 Blood - Blood Anaerobic Blood Culture - Final No growth in 5 days. 04/13/20 11:35 Blood - Blood Aerobic Blood Culture - Final No growth in 5 days. 04/13/20 11:35 Blood - Blood Anaerobic Blood Culture - Final No growth in 5 days. Medications List Reviewed: Yes Assessment & Plan Physician Review Additional Text: Impression: Acute on chronic respiratory failure secondary to acute on chronic systolic CHF with ejection fraction 15-20% complicated with COPD exacerbation Hypertension BPH Hyperlipidemia Anemia of chronic disease Chronic renal failure stage 3 Plan: Acute on chronic respiratory failure secondary to acute on chronic systolic CHF with ejection fraction 15-20% complicated with COPD exacerbation: covering for Dr. Conde On oxygen support Crackles and wheezes occasionally short will get a repeat x-ray today Continue diuretics and bronchodilators Continue 1500 cc per day fluid restriction. Maintain sats above 93%. Will discuss further with social work on Sunday. Hypertension: Titrate antihypertensives BPH: Continue medication Hyperlipidemia: Continue medication Anemia of chronic disease: Continue to monitor closely. Chronic renal failure stage 3: Continue to monitor closely. Patient is DNR Plan is to send the patient to a [facility] with hospice Time Spent Managing Pts Care (In Minutes): 38
--- NOTE | 2020-04-19 14:08 | PN ---
Subjective: Patient is sitting in bed, comfortable, has no new complaint. Objective: Vital Signs: Blood pressure 110/70, pulse 80, temperature 96.9. Pulse oximetry on 3 L o xygen nasal cannula 96%. Heart: Regular rate and rhythm. Chest: Bilateral crackles. Abdomen: Soft, benign. Bowel sounds are active. Extremities: No edema. No cyanosis. Peripheral pulses are felt. Neurological: Alert, oriented, grossly intact. Laboratory Data: CBC noted the hemoglobin 10.6, hematocrit 32.7, platelets 161, white cell count 7.5 . Chemistry noted the sodium 134, BUN 68, creatinine 1.85, magnesium 2.5. Assessment And Plan: 1.Acute on chronic systolic and diastolic congestive heart failure with the patient's left ventricul ar ejection fraction 15% to 20%. We will continue IV Lasix. On current management, clinically samreen murdock 2.Chronic obstructive pulmonary disease. The patient on beta-2 agonist breathing treatments on oxyg en protocol, is stable. 3.Acute on chronic renal failure, stable, slightly improved from admission. 4.Pending long-term placement and then hospice care as per the patient and his family wishes. We will continue current treatment. MFS/MODL Voice ID: [id number] Report ID: [id number]
--- NOTE | 2020-04-19 16:46 | RAD REPORT ---
EXAM DESCRIPTION: RAD - Chest Single View - 04/19/2020 4:35 pm CLINICAL HISTORY: SOB Chest pain. COMPARISON: Chest Single View dated 04/16/2020; Chest Single View dated 04/15/2020; Chest Single View dated 04/14/2020; Chest Single View dated 04/13/2020 FINDINGS: Portable technique limits examination quality. Bibasilar lung opacities are again noted, appearing basically unchanged since comparative study. The heart is mildly enlarged in size. No displaced fractures. IMPRESSION: Stable chest since 04/16/2020.
[2020-04-19] MEDS: ATORVASTATIN 10 MG TAB PO SCH (21:05)
[2020-04-20 05:39] LABS: Absolute Lymphocytes (CBC) 0.3 K/uL (0.7-4.9); Basophils % 0.4 % (0-1.3); Hematocrit 35.8 % (39.6-49.0); Lymphocytes % 4.4 % (15.3-44.8); MPV 8.8 fL (7.6-11.3); RBC Red Blood Cell Count 4.06 M/uL (4.33-5.43)
[2020-04-20 05:51] LABS: Magnesium 2.5 mg/dL (1.8-2.4); Potassium 4.5 mmol/L (3.5-5.1)
[2020-04-20] MEDS: DULERA 100/5 (MOMETASONE/FORMOTEROL) INHALER IH SCH ×2 (07:59→21:18)
[2020-04-20] MEDS: FOLIC ACID 1 MG TABLET PO SCH (08:00)
[2020-04-20] MEDS: TAMSULOSIN 0.4 MG SR CAP PO SCH (08:00)
[2020-04-20] MEDS: HEPARIN 5000 UNIT/ML 1 ML VIAL SQ SCH ×2 (08:00→21:18)
[2020-04-20] MEDS: FUROSEMIDE 40 MG TABLET PO SCH ×2 (08:00→16:13)
[2020-04-20] MEDS: predniSONE 10 MG TAB PO SCH ×2 (08:00→21:18)
[2020-04-20] MEDS: CLOPIDOGREL 75 MG TABLET PO SCH (08:01)
[2020-04-20] MEDS: THIAMINE HCL 100 MG TABLET PO SCH (08:01)
[2020-04-20] MEDS: ASPIRIN EC 81 MG TAB PO SCH (08:01)
[2020-04-20] MEDS: FAMOTIDINE 20 MG TAB PO SCH ×2 (08:01→21:18)
[2020-04-20] MEDS: lisinopriL 10 MG TAB PO SCH (08:01)
[2020-04-20] MEDS: TRAMADOL HCL 50 MG TAB PO PRN (15:22)
--- NOTE | 2020-04-20 20:58 | PN ---
Subjective: The patient has no new complaint. Objective: Vital Signs: Blood pressure 110/70, pulse 78, temperature 97.8. Heart: Regular rate and rhythm. Chest: Bilateral crackles. Abdomen: Soft, benign. Neurological: Alert, oriented, intact. Laboratory Data: White blood cells 7, hemoglobin 11.6, hematocrit 35.8, platelets at 227. Sodium 13 4, BUN 69, creatinine 1.79, GFR of 36. Chest x-ray as of yesterday, stable, followed by nodular lung opacities. 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 We will continue current IV Lasix. The patient is gradually, but slowly improving. 2.Chronic obstructive pulmonary disease. We will continue current treatment. 3.Acute renal failure slowly but gradually improving with diuresis. 4.Pending [facility] placement with hospice care. Continue current treatment. MFS/MODL Voice ID: [id number] Report ID: [id number]
[2020-04-20] MEDS: ATORVASTATIN 10 MG TAB PO SCH (21:18)
--- NOTE | 2020-04-21 06:14 | EKG ---
Test Date: 2020-04-16 Test Time: 20:23:04 Accounting Officer: RT Maldonado MEASUREMENT RESULTS: Intervals: Rate: 100 GA: 174 QRSD: 114 QT: 368 QTc: 474 [place]: P: 53 GA: 174 QRS: 64 T: 268 INTERPRETIVE STATEMENTS: Sinus rhythm with frequent premature ventricular complexes and fusion complexes Cannot rule out Inferior infarct, age undetermined Anteroseptal infarct, age undetermined Abnormal ECG Compared to ECG 04/14/2020 08:46:36 Fusion complex(es) now present Ventricular premature complex(es) now present Right-axis deviation no longer present Myocardial infarct finding still present Electronically Signed On 04-21-20 06:11:30 CDT by Popeye Doe
[2020-04-21] MEDS: ALBUTEROL 2.5 MG/3 ML NEB SOL NEB PRN ×2 (07:25→13:20)
[2020-04-21] MEDS: FAMOTIDINE 20 MG TAB PO SCH ×2 (08:15→21:01)
[2020-04-21] MEDS: DULERA 100/5 (MOMETASONE/FORMOTEROL) INHALER IH SCH ×2 (08:15→20:59)
[2020-04-21] MEDS: CLOPIDOGREL 75 MG TABLET PO SCH (08:16)
[2020-04-21] MEDS: HEPARIN 5000 UNIT/ML 1 ML VIAL SQ SCH ×2 (08:16→21:03)
[2020-04-21] MEDS: ASPIRIN EC 81 MG TAB PO SCH (08:16)
[2020-04-21] MEDS: THIAMINE HCL 100 MG TABLET PO SCH (08:16)
[2020-04-21] MEDS: TAMSULOSIN 0.4 MG SR CAP PO SCH (08:16)
[2020-04-21] MEDS: FOLIC ACID 1 MG TABLET PO SCH (08:16)
[2020-04-21] MEDS: predniSONE 10 MG TAB PO SCH ×2 (08:16→21:01)
[2020-04-21] MEDS: lisinopriL 10 MG TAB PO SCH (09:00)
[2020-04-21] MEDS: FUROSEMIDE 40 MG TABLET PO SCH ×2 (09:29→16:40)
--- NOTE | 2020-04-21 12:53 | EKG ---
Test Date: 2020-04-20 Test Time: 15:33:53 Program Director [employer]: SHASHA MEASUREMENT RESULTS: Intervals: Rate: 85 ME: 200 QRSD: 88 QT: 384 QTc: 456 [place]: P: 65 ME: 200 QRS: 81 T: 122 INTERPRETIVE STATEMENTS: Sinus rhythm with occasional premature ventricular complexes Anteroseptal infarct, age undetermined Abnormal ECG Compared to ECG 04/16/2020 20:23:04 Fusion complex(es) no longer present Myocardial infarct finding still present Electronically Signed On 04-21-20 12:50:33 CDT by Popeye Doe
[2020-04-21] MEDS: HYDROCODONE/APAP 5/325 MG TAB PO PRN ×2 (16:41→21:00)
--- NOTE | 2020-04-21 18:05 | PN ---
Subjective: The patient is hemodynamically stable. He has no new complaints. Feeling well. No inc reased shortness of breath. Objective: Vital Signs: Blood pressure 110/60, pulse 90, temperature 97.4. Heart: Regular rate and rhythm. Chest: Mild bilateral crackles, much less than before. Abdomen: Soft, nontender. No hepatosplenomegaly. Bowel sounds are normoactive. Extremities: No edema. No cyanosis. Assessment/plan: 1.Acute on chronic diastolic and systolic congestive heart failure. The patient is doing well from that standpoint. 2.Acute on chronic renal failure. Patient has been stabilized. 3.His chronic obstructive pulmonary disease is stable. The rest of his medical problems stable. We are still waiting on the patient to have half-way placement to discharge him. MFS/MODL Voice ID: [id number] Report ID: [id number]
[2020-04-21] MEDS: ATORVASTATIN 10 MG TAB PO SCH (21:01)
[2020-04-22] MEDS: TAMSULOSIN 0.4 MG SR CAP PO SCH (08:36)
[2020-04-22] MEDS: FOLIC ACID 1 MG TABLET PO SCH (08:36)
[2020-04-22] MEDS: FUROSEMIDE 40 MG TABLET PO SCH (08:36)
[2020-04-22] MEDS: predniSONE 10 MG TAB PO SCH (08:36)
[2020-04-22] MEDS: ASPIRIN EC 81 MG TAB PO SCH (08:36)
[2020-04-22] MEDS: CLOPIDOGREL 75 MG TABLET PO SCH (08:36)
[2020-04-22] MEDS: THIAMINE HCL 100 MG TABLET PO SCH (08:36)
[2020-04-22] MEDS: FAMOTIDINE 20 MG TAB PO SCH (08:36)
[2020-04-22] MEDS: DULERA 100/5 (MOMETASONE/FORMOTEROL) INHALER IH SCH (08:37)
[2020-04-22] MEDS: HEPARIN 5000 UNIT/ML 1 ML VIAL SQ SCH (08:37)
[2020-04-22] MEDS: lisinopriL 10 MG TAB PO SCH (09:00)
[2020-04-22 12:35] VITALS: O2SAT 93
[2020-04-22 12:52] VITALS: BP 116/59; TEMP 97.4
== END 2020-04-22 13:08 | disposition hospice, home (50) | DRG 291 ==
LOC: ER 10:33 → ERHOLD 12:56 → 2ND 20:19
PROVIDERS: ADMIT Internal Medicine; ATTEND Internal Medicine
PROC: 8E0ZXY6 Isolation (ICD-10-PCS; principal; 2020-04-13)
DX: I13.0 Hypertensive heart and chronic kidney disease with heart failure and stage 1 through stage 4 chronic kidney disease, or unspecified chronic kidney disease (principal); I50.43 Acute on chronic combined systolic (congestive) and diastolic (congestive) heart failure; J96.20 Acute and chronic respiratory failure, unspecified whether with hypoxia or hypercapnia; I47.2 Ventricular tachycardia; N17.9 Acute kidney failure, unspecified; J44.1 Chronic obstructive pulmonary disease with (acute) exacerbation; Z66 Do not resuscitate; N18.3 Chronic kidney disease, stage 3 (moderate); F17.210 Nicotine dependence, cigarettes, uncomplicated; D63.8 Anemia in other chronic diseases classified elsewhere; N40.0 Benign prostatic hyperplasia without lower urinary tract symptoms; E78.5 Hyperlipidemia, unspecified; M19.90 Unspecified osteoarthritis, unspecified site; Z79.899 Other long term (current) drug therapy; Z79.02 Long term (current) use of antithrombotics/antiplatelets; Z79.52 Long term (current) use of systemic steroids; Z88.7 Allergy status to serum and vaccine; Z86.73 Personal history of transient ischemic attack (TIA), and cerebral infarction without residual deficits; Z20.828 Contact with and (suspected) exposure to other viral communicable diseases
CPT/HCPCS: 36415; 71045; 80048; 80076; 81003; 81015; 82150; 82550; 82553; 82805; 83605; 83690; 83735; 83880; 84100; 84132; 84145; 84484; 85025; 85610; 85730; 87040; 87070; 87081; 87804; 93005; 93306; 94760; 96374; 99285; J1644; J1650; J1940; J2310; J2405; J2920; J7512; J7606; U0002